=== PATIENT | female | born 1975 | race Caucasian/White ===

== ENCOUNTER 2023-08-09 09:51 | Outpatient (OUT) | payer BC, SELFPAY ==
--- NOTE | 2023-08-09 10:00 | XR_ITS ---
The [address] [address] Patient Name: HELEN RICO MRN: [id number] date: 1975 Sex: F Assigned Patient Location: [facility] Current Patient Location: Accession/Order Number: [id number] Exam Date: 08/09/2023 10:05 Report Date: 08/10/2023 10:48 At the request of: MARIA FERNANDA DINERO Procedure: XR abdomen 1V EXAMINATION: XR abdomen 1V HISTORY: Kidney Stone N20.0 COMPARISON: XR abdomen 07/08/2023 FINDINGS: KIDNEY/URETER - RIGHT: Multiple stones projecting over right kidney, largest is 7 mm. KIDNEY/URETER - LEFT: No visible renal or ureteral calcifications. PELVIS: No visible ureteral stones. BOWEL: No abnormal dilation or deviation. BONES: No acute abnormality. OTHER: Negative. No abnormal gaseous collections. XR/XR abdomen 1V IMPRESSION: 1. Nonobstructing right nephrolithiasis. 2. No visible ureteral stones; suspect passage of stone within right ureter. Electronically authenticated by: VANITA MELGOZA Date: 08/10/2023 10:48
== END 2023-08-09 09:52 | disposition home or self-care (01) ==
PROVIDERS: Visit Provider Urology
DX: N20.0 Calculus of kidney (principal)
CPT/HCPCS: 74018

== ENCOUNTER 2024-06-28 10:14 | Outpatient (OUT) | payer BC, SELFPAY ==
--- NOTE | 2024-06-28 10:20 | ECG_ITS ---
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
--- NOTE | 2024-06-28 11:00 | PM.PRESUREVA ---
History of Present Illness History of Present Illness Chief complaint: right kidney stone Narrative: Patient presents for preadmission testing. The patient states he has a history of kidney stones and previously has passed stones on his own without intervention. He states he has had intermittent episodes of hematuria, frequency, urgency with urination, nocturia, weak urine stream, and incomplete bladder emptying. He states today he is not having any pain and denies fever, nausea, vomiting, or any other complaints. Review of Systems ROS Narrative REVIEW OF SYSTEMS: Negative except as stated in HPI, ten or more systems reviewed. Constitutional: No fever, chills, weakness ENT: No sore throat or epistaxis Cardiovascular: No edema, chest pain, palpitations, or activity intolerance Respiratory: No shortness of breath, cough, or wheezing Musculoskeletal: No joint pain or swelling Gastrointestinal: No abdominal pain, constipation, diarrhea, or vomiting Neurological: No numbness, tingling, weakness, or headache Psychiatric: No mood changes PFSH PFSH Medical History (Updated 06/28/24 @ 10:37 by Ashley Mcintyre NP) Panic attacks ?F41.0 - Panic disorder [episodic paroxysmal anxiety] (ICD-10) Depression ?F32.A - Depression, unspecified (ICD-10) Anxiety ?F41.9 - Anxiety disorder, unspecified (ICD-10) Migraine ?G43.909 - Migraine, unspecified, not intractable, without status migrainosus (ICD-10) Seizures ?R56.9 - Unspecified convulsions (ICD-10) Kidney stones ?N20.0 - Calculus of kidney (ICD-10) GERD (gastroesophageal reflux disease) ?K21.9 - Gastro-esophageal reflux disease without esophagitis (ICD-10) Surgical History (Updated 06/28/24 @ 10:37 by Ashley Mcintyre NP) H/O removal of cyst ?Z98.890 - Other specified postprocedural states (ICD-10) Family History (Updated 06/28/24 @ 10:37 by Ashley Mcintyre NP) Other Cancer Family history of diabetes mellitus Family history of hypertension Social History (Updated 06/28/24 @ 10:33 by Ashley Mcintyre NP) Within the past year, how often did you have a drink containing alcohol: monthly or less Smoking status: Current every day smoker What tobacco products do you use: cigarettes Cigarettes per day: 30 Years smoked: 30 Smoking pack-years: 45.00 Non-prescribed substance use: cannabis (any form) 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 Highest level of school completed/degree received: high school graduate Meds Home Medications and Allergies Home Medications ?Medication ?Instructions ?Recorded ?Confirmed ?Type famotidine 20 mg tablet 20 mg PO Q12H PRN heartburn 06/28/24 06/28/24 History ondansetron 4 mg disintegrating 4 mg translingual Q8H PRN nausea 06/28/24 06/28/24 History tablet and vomiting propranolol 20 mg tablet 20 mg PO Q12H PRN anxiety 06/28/24 06/28/24 History tamsulosin 0.4 mg capsule 0.4 mg PO Q24H 06/28/24 06/28/24 History Allergies Allergy/AdvReac Type Severity Reaction Status Date / Time bee venom protein (honey bee) Allergy Swelling Verified 06/28/24 10:29 of Lip/Tongue/Throat Exam Narrative Exam Narrative: Constitutional: Awake, alert, comfortable, well-appearing, nontoxic, interactive, vital signs as charted Head: Normocephalic, atraumatic Neck: Supple, normal appearance, normal range of motion, no meningeal signs, no lymphadenopathy Respiratory: No respiratory distress, breath sounds clear Cardiovascular: Regular rate and rhythm, strong and regular heart tones Abdomen: Nontender, normal bowel sounds, soft, no CVA tenderness Musculoskeletal: Normal gait, no swelling or edema Skin: No rashes or induration, no lesions, only visible skin inspected Neuro: No neurological deficits, normal sensation Psychiatric: Oriented ?3, normal affect Assessment and Plan Assessment and Plan (1) Kidney stones: Plan Right ESWL scheduled with Dr. Landrum July 12, 2024.
[2024-06-28 11:01] LABS: Basophils Percent Auto 0.4 % (0.2-2.0); Eosinophils Absolute Auto 0.4 10^3/uL (0.0-0.7); Eosinophils Percent Auto 4.6 % (0.9-7.0); Hematocrit 41.7 % (36.0-48.0); Hemoglobin 14.4 g/dL (12.0-16.0); Immature Granulocytes Abs Auto 0.01 10^3/uL (0.00-0.03); Immature Granulocytes Pct Auto 0.1 % (0.0-0.5); Lymphocytes Absolute Auto 2.7 10^3/uL (1.2-3.8); Lymphocytes Percent Auto 34.9 % (20.5-60.0); Mean Corpuscular HGB Conc 34.5 g/dL (29.9-35.2); Mean Corpuscular Hemoglobin 32.4 pg (26.7-34.0); Mean Corpuscular Volume 93.9 fL (81.0-99.0); Mean Platelet Volume 8.8 fL (9.5-13.5); Monocytes Absolute Auto 0.8 10^3/uL (0.3-0.8); Monocytes Percent Auto 9.6 % (1.7-12.0); Neutrophils Percent Auto 50.4 % (43.0-75.0); Platelet Count 243 10^3/uL (150-450); Red Blood Count 4.44 10^6/uL (4.20-5.40); Red Cell Distribution Width 11.9 % (11.0-15.0); White Blood Count 7.8 10^3/uL (4.0-11.0)
[2024-06-28 11:19] LABS: INR 0.98; Prothrombin Time 10.4 sec (9.0-11.6)
[2024-06-28 11:35] LABS: Anion Gap 9.8; BUN Creatinine Ratio 16.2; Calcium 8.9 mg/dL (8.5-10.1); Carbon Dioxide 32.1 mmol/L (21.0-32.0); Chloride 104 mmol/L (98-107); Estimated GFR (African America >60 (>=60); Estimated GFR (Non-African Ame 60 (>=60); Glucose 98 mg/dL (74-106); Potassium 3.9 mmol/L (3.5-5.1); Sodium 142 mmol/L (136-145)
== END 2024-06-28 10:15 | disposition home or self-care (01) ==
LOC: PST 10:15
PROVIDERS: Visit Provider Urology
DX: Z01.810 Encounter for preprocedural cardiovascular examination (principal); Z01.812 Encounter for preprocedural laboratory examination; Z01.818 Encounter for other preprocedural examination; N20.0 Calculus of kidney
CPT/HCPCS: 36415; 80048; 85025; 85610; 85730; 93005; G0463

== ENCOUNTER 2024-07-19 08:13 | Day surgery (SDC) | payer BC, SELFPAY ==
[2024-06-28 10:48] VITALS: BP 150/89; PULSE 64; TEMP 36.2; O2SAT 99; BMI 25.2
[2024-07-19] VITALS (12 sets, daily range): BP systolic 141–182; BP diastolic 83–107; PULSE 52–105; TEMP 36.1–36.3; O2SAT 93–99; BMI 25.2
--- OUTSIDE RECORDS SUMMARY | 2024-07-19 08:17 | XMS_ITS | CCD ---
Author Organization [facility] Care Team Providers Care Weather Clerk Name Role Phone Unavailable Unavailable Unavailable Flora, Steven Unavailable Unavailable Flora, Steven Unavailable Unavailable Teran, José Miguel Humberto Unavailable Unavailable José Miguel Teran Humberto Unavailable Unavailable Dexter Davis Primary Care Provider [phone] Dexter Cleaning Primary Care Provider [phone] Joi Cuellar Primary Care Physician Dexter Cleaning Primary Care Provider [phone] HEIDI CHOUDHURY Attending Unavailable LESLIE ZHAO Attending Unavailable Joi Cuellar Primary Care Physician DEXTER DAVIS Primary Care Unavailable JOI CUELLAR Referring Unavailable DEXTER DAVIS Primary Care Unavailable JOI CUELLAR Referring Unavailable DEXTER DAVIS Primary Care Unavailable ALICIA POSADAS Attending Unavailable CLAYTON COLLIER Attending Unavailable FOUZIA DAVISIAN René Primary Care Unavailable DEXTER DAVIS Primary Care Unavailable JOI CUELLAR Referring Unavailable DEXTER DAVIS Primary Care Unavailable JOI CUELLAR Referring Unavailable Yandel LANDRUM Attending Unavailable Heidi Choudhury Admitting Unavailable Heidi Choudhury Attending Unavailable Heidi Choudhury Referring Unavailable Joi Cuellar Attending Unavailable Joi Cuellar Admitting Unavailable Yandel LANDRUM Attending Unavailable Yandel LANDRUM Attending Unavailable DIANNE SOOD Attending Unavailable Joi Cuellar Attending Unavailable Joi Cuellar Attending Unavailable Joi Cuellar Attending Unavailable Joi Cuellar Attending Unavailable Becky Nicholson. Attending Unavailable Joi Cuellar Attending Unavailable Joi Cuellar Attending Unavailable Joi Cuellar Referring Unavailable Yandel LANDRUM Attending Unavailable Allergies Allergy Classification Reported Allergen(s) Allergy Type Date of Onset Reaction(s) Facility Bee/Wasp/Ant Venom (2 sources) Bee/Wasp/Ant venom Substance Allergy 4 Edema of pharynx (disorder), Anaphylaxis [facility] (10 sources) Bee/Wasp/Ant venom; Translations: [Bee Stings] Drug allergy Edema of pharynx (disorder) [facility] (2 sources) bee venom Propensity to adverse reactions to drug 4 Anaphylaxis [facility] Medications Current Medications Medication Drug Class(es) Dates Sig (Normalized) Sig (Original) 24 hr buPROPion hydrochloride 300 mg extended release oral tablet (13 sources) Aminoketone Start: 06-14-2023 take 1 tablet by mouth once daily in the morning Wellbutrin XL 300 mg/24 hours Tab-ER 300 mg = 1 tab(s), Oral, Daily, every AM, # 90 tab(s), Refills(s) 0, Pharmacy: [facility], 175, cm, 06/14/23 11:19:00 EDT, Height/Length Dosing, 77.6, kg, 06/14/23 11:19:00 EDT, Weight Dosing Start Date: 06/14/23 Status: Ordered Start: 05-17-2023 take 1 tablet by chely th once daily in the morning Wellbutrin XL 150 mg/24 hours Tab-ER 150 mg = 1 tab(s), Oral, q24hr, Every morning, # 90 tab(s), Refills(s) 1, Pharmacy: [facility], 175, cm, 05/17/23 11:57:00 EDT, Height/Length Dosing, 79.2, kg, 05/17/23 11:57:00 EDT, Weight Dosing Start Date: 05/17/23 Status: Ordered Start: 02-08-2023 take 1 tablet by chely th once daily in the morning Wellbutrin XL 150 mg/24 hours Tab-ER 150 mg = 1 tab(s), Oral, q24hr, Every morning, # 30 tab(s), Refills(s) 0, Pharmacy: [facility], 179, cm, 02/08/23 8:59:00 EDT, Height/Length Dosing, 85.7, kg, 02/08/23 9:08:00 EDT, Weight Dosing Start Date: 02/08/23 Status: Ordered celecoxib 200 mg oral capsule (3 sources) Nonsteroidal Anti-inflammatory Drug Start: 03-16-2024 take 1 capsule by mouth twice daily at mealtime CeleBREX 200 mg Cap 200 mg = 1 cap(s), Oral, BID, with food, # 60 cap(s), Refills(s) 0, Pharmacy: [facility], 175, cm, 03/16/24 10:50:00 EDT, Height/Length Dosing, 84.2, kg, 03/16/24 10:50:00 EDT, Weight Dosing Start Date: 03/16/24 Status: Ordered ciprofloxacin 500 mg oral tablet (1 source) Quinolone Antimicrobial Start: 06-14-2024 ciprofloxacin 500 mg Tab Refills(s) 0 Start Date: 06/14/24 Status: Ordered dicyclomine hydrochloride 10 mg oral capsule (12 sources) Anticholinergic Start: 06-14-2023 take 1 capsule by mouth every six hours as needed dicyclomine 10 mg Cap 10 mg = 1 cap(s), Oral, q6hr, PRN Irritable bowel symptoms, # 60 cap(s), Refills(s) 0, Pharmacy: [facility], 175, cm, 06/14/23 11:19:00 EDT, Height/Length Dosing, 77.6, kg, 06/14/23 11:19:00 EDT, Weight Dosing Start Date: 06/14/23 Status: Ordered Start: 05-17-2023 take 1 capsule by [facility] every six hours as needed dicyclomine 10 mg Cap 10 mg = 1 cap(s), Oral, q6hr, PRN Irritable bowel symptoms, # 60 cap(s), Refills(s) 0, Pharmacy: [facility], 175, cm, 05/17/23 11:57:00 EDT, Height/Length Dosing, 79.2, kg, 05/17/23 11:57:00 EDT, Weight Dosing Start Date: 05/17/23 Status: Ordered famotidine 20 mg oral tablet (12 sources) Histamine-2 Receptor Antagonist Start: 06-14-2023 take 1 tablet by mouth once daily at bedtime famotidine 20 mg Tab 20 mg = 1 tab(s), Oral, Once a day (at bedtime), avoid eating and drinking for 10 minutes after each dose, # 90 tab(s), Refills(s) 1, Pharmacy: [facility], 175, cm, 06/14/23 11:19:00 EDT, Height/Length Dosing, 77.6, kg, 06/14/23 11:19:00 EDT, Weight Dosing Start Date: 06/14/23 Status: Ordered Start: 05-17-2023 take 1 tablet by chely once daily at bedtime famotidine 20 mg Tab 20 mg = 1 tab(s), Oral, Once a day (at bedtime), avoid eating and drinking for 10 minutes after each dose, # 30 tab(s), Refills(s) 1, Pharmacy: [facility], 175, cm, 05/17/23 11:57:00 EDT, Height/Length Dosing, 79.2, kg, 05/17/23 11:57:... Start Date: 05/17/23 Status: Ordered ondansetron 4 mg disintegrating oral tablet (14 sources) Serotonin-3 Receptor Antagonist Start: 12-10-2014 take 1 tablet by mouth every eight hours as needed for nausea ondansetron (ZOFRAN ODT) 4 MG disintegrating tablet Take 1 tablet by mouth every 8 hours as needed for Nausea or Vomiting. 6 tablet 0 12/10/2014 Active propranolol hydrochloride 20 mg oral tablet (13 sources) beta-Adrenergic Dawit Start: 06-14-2023 take 1 tablet by mouth twice daily as needed for anxiety propranolol 20 mg Tab 20 mg = 1 tab(s), Oral, BID, PRN Anxiety, # 180 tab(s), Refills(s) 1, Pharmacy: [facility], 175, cm, 06/14/23 11:19:00 EDT, Height/Length Dosing, 77.6, kg, 06/14/23 11:19:00 EDT, Weight Dosing Start Date: 06/14/23 Status: Ordered Start: 03-08-2023 take 1 tablet by chely twice daily as needed for anxiety propranolol 20 mg Tab 20 mg = 1 tab(s), Oral, BID, PRN Anxiety, # 60 tab(s), Refills(s) 0, Pharmacy: [facility], 179, cm, 02/08/23 8:59:00 EDT, Height/Length Dosing, 81.5, kg, 03/08/23 11:11:00 EDT, Weight Dosing Start Date: 03/08/23 Status: Ordered Start: 02-08-2023 take 1 tablet by [facility] twice daily as needed for anxiety propranolol 20 mg Tab 20 mg = 1 tab(s), Oral, BID, PRN Anxiety, # 60 tab(s), Refills(s) 0, Pharmacy: [facility], 179, cm, 02/08/23 8:59:00 EDT, Height/Length Dosing, 85.7, kg, 02/08/23 9:08:00 EDT, Weight Dosing Start Date: 02/08/23 Status: Ordered tamsulosin hydrochloride 0.4 mg oral capsule (20 sources) alpha-Adrenergic Dawit Start: 06-14-2024 take 1 capsule by mouth once daily tamsulosin 0.4 mg Cap 0.4 mg = 1 cap(s), Oral, Daily, # 90 cap(s), Refills(s) 1, Pharmacy: [facility], 175, cm, 06/14/24 9:10:00 EDT, Height/Length Dosing, 81.7, kg, 06/14/24 9:10:00 EDT, Weight Dosing Start Date: 06/14/24 Status: Ordered Start: 04-24-2024 take 1 capsule by [facility] once daily tamsulosin 0.4 mg Cap 0.4 mg = 1 cap(s), Oral, Daily, # 90 cap(s), Refills(s) 0, Pharmacy: [facility], 175, cm, 03/16/24 10:50:00 EDT, Height/Length Dosing, 84.2, kg, 03/16/24 10:50:00 EDT, Weight Dosing Start Date: 04/24/24 Status: Ordered Start: 12-12-2014 take 1 capsule by [facility] once daily tamsulosin 0.4 mg Cap 0.4 mg = 1 cap(s), Oral, Daily, # 30 cap(s), Refills(s) 0, Pharmacy: [facility], 175, cm, 03/16/24 10:50:00 EDT, Height/Length Dosing, 84.2, kg, 03/16/24 10:50:00 EDT, Weight Dosing Start Date: 03/16/24 Status: Ordered Zofran ODT 4 mg Tab-Dis (10 sources) Start: 03-16-2024 take 1 tablet by mouth three times daily as needed for nausea Zofran ODT 4 mg Tab-Dis 4 mg = 1 tab(s), Oral, TID, PRN Nausea/Vomiting, # 30 tab(s), Refills(s) 0, Pharmacy: [facility], 175, cm, 03/16/24 10:50:00 EDT, Height/Length Dosing, 84.2, kg, 03/16/24 10:50:00 EDT, Weight Dosing Start Date: 03/16/24 Status: Ordered Start: 06-14-2023 take 1 tablet by chely th three times daily as needed for nausea Zofran ODT 4 mg Tab-Dis 4 mg = 1 tab(s), Oral, TID, PRN Nausea/Vomiting, # 30 tab(s), Refills(s) 0, Pharmacy: [facility], 175, cm, 06/14/23 11:19:00 EDT, Height/Length Dosing, 77.6, kg, 06/14/23 11:19:00 EDT, Weight Dosing Start Date: 06/14/23 Status: Ordered Start: 02-08-2023 take 1 tablet by chely th three times daily as needed for nausea Zofran ODT 4 mg Tab-Dis 4 mg = 1 tab(s), Oral, TID, PRN Nausea/Vomiting, # 30 tab(s), Refills(s) 0, Pharmacy: [facility], 179, cm, 02/08/23 8:59:00 EDT, Height/Length Dosing, 85.7, kg, 02/08/23 9:08:00 EDT, Weight Dosing Start Date: 02/08/23 Status: Ordered Completed/Discontinued Medications Medication Drug Class(es) Dates Sig (Normalized) Sig (Original) ibuprofen 200 mg oral tablet (1 source) Nonsteroidal Anti-inflammatory Drug Start: 11-07-2023 End: 11-07-2023 ibuprofen (ADVIL;MOTRIN) tablet 600 mg Start: 11-07-2023 End: 11-07-2023 ibuprofen (ADVIL;MOTRIN) tab let 600 mg Problems Active Problems Problem Classification Problem Date Documented Date Episodic/Chronic Abdominal pain (6 sources) Generalized abdominal pain; Translations: [Generalized abdominal pain] Onset: 05-17-2023 Episodic Anxiety disorders (17 sources) Generalized anxiety disorder; Translations: [Generalized anxiety disorder] Onset: 02-08-2023 Chronic Calculus of urinary tract (20 sources) Kidney stone; Translations: [Calculus of kidney] Onset: 12-12-2014 12-12-2014 Episodic Esophageal disorders (1 source) Gastroesophageal reflux disease without esophagitis; Translations: [Gastro-esophageal reflux disease without esophagitis] Onset: 06-14-2023 Chronic Genitourinary symptoms and ill-defined conditions (10 sources) Blood in urine; Translations: [Hematuria, unspecified] Onset: 07-05-2023 Episodic Hyperplasia of prostate (3 sources) Benign prostatic hypertrophy with outflow obstruction; Translations: [Benign prostatic hyperplasia with lower urinary tract symptoms] Onset: 2024 Chronic Malaise and fatigue (10 sources) Fatigue 05-13-2020 Episodic Nausea and vomiting (12 sources) Nausea; Translations: [Nausea] Onset: 02-08-2023 Episodic Other acquired deformities (10 sources) Wrist joint deformity 04-23-2020 Episodic Other acquired deformities (2 sources) Acquired deformity of left forearm; Translations: [Unspecified acquired deformity of left forearm] Other connective tissue disease (1 source) Ganglion cyst; Translations: [Ganglion cyst] Episodic Other connective tissue disease (1 source) Disorder of rotator cuff; Translations: [Unspecified disorder of synovium and tendon, left shoulder] 11-07-2023 Episodic Other connective tissue disease (1 source) Pain in right hand; Translations: [Right hand pain] Other connective tissue disease (1 source) Pain in left thumb; Translations: [Pain of left thumb] Other diseases of kidney and ureters (2 sources) Renal tubulo-interstitial disease, unspecified; Translations: [Renal tubulo-interstitial disease, unspecified] Onset: 07-08-2023 Chronic Other diseases of kidney and ureters (1 source) Urinary tract obstruction; Translations: [Other obstructive and reflux uropathy] Onset: 2024 Episodic Other lower respiratory disease (1 source) Apnea; Translations: [Apnea, not elsewhere classified] Onset: 06-14-2023 Episodic Other nervous system disorders (2 sources) Anesthesia of skin; Translations: [Anesthesia of skin] Episodic Other non-traumatic joint disorders (10 sources) Pain in wrist 04-23-2020 Episodic Other non-traumatic joint disorders (2 sources) Pain of left wrist; Translations: [Pain in left wrist] Other non-traumatic joint disorders (1 source) Pain of right wrist; Translations: [Right wrist pain] Other nutritional; endocrine; and metabolic disorders (13 sources) Overweight; Translations: [Overweight] Onset: 02-08-2023 Episodic Other nutritional; endocrine; and metabolic disorders (9 sources) Overweight in adulthood with body mass index of 25 or more but less than 30; Translations: [Body mass index (BMI) 28.0-28.9, adult] Onset: 02-08-2023 Episodic Other nutritional; endocrine; and metabolic disorders (1 source) Abnormal weight loss; Translations: [Abnormal weight loss] Onset: 02-08-2023 Episodic Other nutritional; endocrine; and metabolic disorders (10 sources) Body mass index 25-29 - overweight 02-17-2021 Episodic Other screening for suspected conditions (not mental disorders or infectious disease) (1 source) Procedure carried out on subject; Translations: [Encounter for screening for other suspected endocrine disorder] Onset: 02-08-2023 Episodic Residual codes; unclassified (10 sources) Sleep apnea 06-06-2019 Chronic Residual codes; unclassified (2 sources) Tobacco user; Translations: [Tobacco use] Onset: 05-17-2023 Episodic Residual codes; unclassified (1 source) Body mass index 20-24 - normal; Translations: [Body mass index (BMI) 24.0-24.9, adult] Onset: 07-05-2023 Episodic Screening and history of mental health and substance abuse codes (10 sources) Tobacco use and exposure - finding 02-17-2021 Chronic Substance-related disorders (5 sources) Smoker 07-25-2023 Chronic Urinary tract infections (1 source) Urinary tract infectious disease; Translations: [Urinary tract infection, site not specified] Onset: 06-14-2024 Episodic Past or Other Problems Problem Classification Problem Date Documented Date Episodic/Chronic Other connective tissue disease (1 source) Unspecified disorder of synovium and tendon, left shoulder; Translations: [Unspecified disorder of synovium and tendon, left shoulder] Onset: 11-07-2023 Episodic Residual codes; unclassified (1 source) Personal history of other complications of , childbirth and the puerperium; Translations: [Personal history of other complications of , childbirth and the puerperium] Onset: 07-08-2023 Episodic Sprains and strains (2 sources) Sprain of left shoulder; Translations: [Unspecified sprain of left shoulder joint, initial encounter] Onset: 11-07-2023 11-07-2023 Episodic Results Test Name Value Interpretation Reference Range Facility Cult,Urineon 06-13-2024 Cult,Urine Specimen Description .URINE Culture NO SIGNIFICANT GROWTH Report Status FINAL 06/13/2024 Normal [facility] Comment on above: Performed By: #### U RC #### [facility] [address] [place] [address] Chief Of Production: Hermann Huerta MD [facility] [address] [place] [address] Chief Of Production: Kole Merchant MD Basic Metabolic Profon 06-12 Anion gap [Moles/Vol] 9 mmol/L Normal 9-17 [facility] Comment on above: Performed By: #### C DP, BMP #### [facility] [address] [facility] [place] [address] Chief Of Production: Kole Merchant MD BUN/CRE Ratio 16 Normal 9-20 [facility] Comment on above: Performed By: #### C DP, BMP #### [facility] [address] [place] [address] Chief Of Production: Kole Merchant MD Calcium [Mass/Vol] 9.4 mg/dL Normal 8.6-10.4 [facility] Comment on above: Performed By: #### C DP, BMP #### [facility] [address] [place] [address] Chief Of Production: Kole Merchant MD Chloride [Moles/Vol] 104 mmol/L Normal 98-107 [facility] Comment on above: Performed By: #### C DP, BMP #### [facility] [address] [place] [address] Chief Of Production: Kole Merchant MD CO2 [Moles/Vol] 26 mmol/L Normal 20-31 [facility] Comment on above: Performed By: #### C DP, BMP #### [facility] [address] [place], [place] [id number] Chief Of Production: Kole Merchant MD Creatinine [Mass/Vol] 0.8 mg/dL Normal 0.7-1.2 [facility] Comment on above: Performed By: #### C DP, BMP #### [facility] [address] [place], [place] [id number] Chief Of Production: Kole Merchant MD GFR/1.73 sq M.predicted among non-blacks MDRD (S/P/Bld) [Vol rate/Area] mL/min/{1.73_m2} Normal >60 [facility] Comment on above: Result Comment: These results are not intended for use in patients <18 years of age. eGFR results are calculated without a race factor using the 2020 CKD-EPI equation. Careful clinical correlation is recommended, particularly when comparing to results calculated using previous equations. The CKD-EPI equation is less accurate in patients with extremes of muscle mass, extra-renal metabolism of creatine, excessive creatine ingestion, or following therapy that affects renal tubular secretion. Performed By: #### C DP, BMP #### [facility] [address] [place], [place] [id number] Chief Of Production: Kole Merchant MD Glucose [Mass/Vol] 104 mg/dL High 70-99 [facility] Comment on above: Performed By: #### C DP, BMP #### [facility] [address] [place], [place] [id number] Chief Of Production: Kole Merchant MD Potassium [Moles/Vol] 3.9 mmol/L Normal 3.7-5.3 [facility] Comment on above: Performed By: #### C DP, BMP #### [facility] [address] [place], [place] [id number] Chief Of Production: Kole Merchant MD Sodium [Moles/Vol] 139 mmol/L Normal 135-144 [facility] Comment on above: Performed By: #### C DP, BMP #### [facility] [address] [place] [address] Chief Of Production: Kole Merchant MD Urea nitrogen [Mass/Vol] 13 mg/dL Normal 6-20 [facility] Comment on above: Performed By: #### C DP, BMP #### [facility] [address] [place] [id number] Chief Of Production: Kole Merchant MD CBC with Diffon 06-12-2024 Abs. Basophil 0.03 k/uL Normal 0.00-0.20 [facility] Comment on above: Performed By: #### C DP, BMP #### [facility] [address] [place] [address] Chief Of Production: Kole Merchant MD Abs.Imm.Granulocyte 0.01 k/uL Normal 0.00-0.30 [facility] Comment on above: Performed By: #### C DP, BMP #### [facility] [address] [place], [place] [id number] Chief Of Production: Kole Merchant MD Abs.Neutrophil (Seg) 5.50 k/uL Normal 2.1-6.5 [facility] Comment on above: Performed By: #### C DP, BMP #### [facility] [address] [place] [address] Chief Of Production: Kole Merchant MD Basophils/100 WBC (Bld) 0 % Normal 0-2 [facility] Comment on above: Performed By: #### C DP, BMP #### [facility] [address] [place] [id number] Chief Of Production: Kole Merchant MD Eosinophils (Bld) [#/Vol] 0.30 10*3/uL Normal 0.00-0.40 [facility] Comment on above: Performed By: #### C DP, BMP #### [facility] [address] [place] [id number] Chief Of Production: Kole Merchant MD Eosinophils/100 WBC (Bld) 4 % Normal 0-5 [facility] Comment on above: Performed By: #### C DP, BMP #### [facility] [address] [place] [address] Chief Of Production: Kole Merchant MD Erythrocyte distribution width (RBC) [Ratio] 11.7 % Low 12.1-15.2 [facility] Comment on above: Performed By: #### C DP, BMP #### [facility] [address] [place] [id number] Chief Of Production: Kole Merchant MD Hematocrit (Bld) [Volume fraction] 39.7 % Low 41.0-53.0 [facility] Comment on above: Performed By: #### C DP, BMP #### [facility] [address] [place] [id number] Chief Of Production: Kole Merchant MD Hemoglobin (Bld) [Mass/Vol] 13.9 g/dL Normal 13.5-17.5 [facility] Comment on above: Performed By: #### C DP, BMP #### [facility] [address] [place] [id number] Chief Of Production: Kole Merchant MD Immature granulocytes/100 WBC (Bld) 0 % Normal 0-5 [facility] Comment on above: Performed By: #### C DP, BMP #### [facility] [address] [place] [address] Chief Of Production: Kole Merchant MD Lymphocytes (Bld) [#/Vol] 2.12 10*3/uL Normal 1.00-4.80 [facility] Comment on above: Performed By: #### C DP, BMP #### [facility] [address] [place] [id number] Chief Of Production: Kole Merchant MD Lymphocytes/100 WBC (Bld) 25 % Normal 13-44 [facility] Comment on above: Performed By: #### C DP, BMP #### [facility] [address] [place] [id number] Chief Of Production: Kole Merchant MD MCH (RBC) [Entitic mass] 31.8 pg Normal 26.0-34.0 [facility] Comment on above: Performed By: #### C DP, BMP #### [facility] [address] [place] [id number] Chief Of Production: Kole Merchant MD MCHC (RBC) [Mass/Vol] 35.0 g/dL Normal 31.0-37.0 [facility] Comment on above: Performed By: #### C DP, BMP #### [facility] [address] [place] [id number] Chief Of Production: Kole Merchant MD MCV (RBC) [Entitic vol] 90.8 fL Normal 80.0-100.0 [facility] Comment on above: Performed By: #### C DP, BMP #### [facility] [address] [place] [address] Chief Of Production: Kole Merchant MD Monocytes (Bld) [#/Vol] 0.51 10*3/uL Normal 0.00-1.00 [facility] Comment on above: Performed By: #### C DP, BMP #### [facility] [address] [place] [address] Chief Of Production: Kole Merchant MD Monocytes/100 WBC (Bld) 6 % Normal 5-9 [facility] Comment on above: Performed By: #### C DP, BMP #### [facility] [address] [place] [address] Chief Of Production: Kole Merchant MD Neutrophil (Seg) 65 % Normal 39-75 [facility] Comment on above: Performed By: #### C DP, BMP #### [facility] [address] [place] [address] Chief Of Production: Kole Merchant MD Platelet mean volume (Bld) [Entitic vol] 8.7 fL Normal 6.0-12.0 [facility] Comment on above: Performed By: #### C DP, BMP #### [facility] [address] [place] [address] Chief Of Production: Kole Merchant MD Platelets (Bld) [#/Vol] 231 10*3/uL Normal 140-450 [facility] Comment on above: Performed By: #### C DP, BMP #### [facility] [address] [place] [address] Chief Of Production: Kole Merchant MD RBC (Bld) [#/Vol] 4.37 10*6/uL Low 4.50-5.90 [facility] Comment on above: Performed By: #### C DP, BMP #### [facility] [address] [place] [address] Chief Of Production: Kole Merchant MD WBC (Bld) [#/Vol] 8.5 10*3/uL Normal 3.5-11.0 [facility] Comment on above: Performed By: #### C DP, BMP #### [facility] [address] [place] [address] Chief Of Production: Kole Merchant MD Urinalysis, Routineon 2023 Bilirubin, SemiQt,Ur Negative Normal NEG [facility] Comment on above: Performed By: #### U MICAO, UA #### [facility] [address] [place] [address] Chief Of Production: Kole Merchant MD Blood, Urine 3+ Abnormal NEG [facility] Comment on above: Performed By: #### U MICAO, UA #### [facility] [address] [facility] [place] [id number] Chief Of Production: Kole Merchant MD Clarity (U) Clear Normal CLEAR [facility] Comment on above: Performed By: #### U MICAO, UA #### [facility] [address] On License Of [facility] [place] [id number] Chief Of Production: Kole Merchant MD Color (U) Yellow Normal YEL [facility] Comment on above: Performed By: #### U MICAO, UA #### [facility] [address] On License Of [facility] [place] [id number] Chief Of Production: Kole Merchant MD Comment Normal [facility] Comment on above: Performed By: #### U MICAO, UA #### [facility] [address] [place] [place] [address] Chief Of Production: Kole Merchant MD Glucose Ql (U) Negative Normal NEG [facility] Comment on above: Performed By: #### U MICAO, UA #### [facility] [address] [place] [place] [address] Chief Of Production: Kole Merchant MD Ketones Ql (U) Negative Normal NEG [facility] Comment on above: Performed By: #### U MICAO, UA #### [facility] [address] On License Of [facility] [place] [id number] Chief Of Production: Kole Merchant MD Leukocyte esterase Test strip Ql (U) 1+ Abnormal NEG [facility] Comment on above: Performed By: #### U MICAO, UA #### [facility] [address] [place], [place] [id number] Chief Of Production: Kole Merchant MD Nitrite,Ur Negative Normal NEG [facility] Comment on above: Performed By: #### U MICAO, UA #### [facility] [address] [place], [place] [id number] Chief Of Production: Kole Merchant MD PH,Ur 6.0 Normal 5.0-8.0 [facility] Comment on above: Performed By: #### U MICAO, UA #### [facility] [address] [place], [place] 1302690 Chief Of Production: Kole Merchant MD Protein Ql (U) 1+ mg/dL Abnormal NEG [facility] Comment on above: Performed By: #### U MICAO, UA #### [facility] [address] [place], [place] [id number] Chief Of Production: Kole Merchant MD Spec. [place],Ur 1.020 Normal 1.005-1.030 [facility] Comment on above: Performed By: #### U MICAO, UA #### [facility] [address] [place], [place] [id number] Chief Of Production: Kole Merchant MD Urobilinogen,Ur Normal Normal 0.0-1.0 [facility] Comment on above: Performed By: #### U MICAO, UA #### [facility] [address] [place], [place] [id number] Chief Of Production: Kole Merchant MD Urinalysis,Microon 4 ----- Normal [facility] Comment on above: Performed By: #### U MICAO, UA #### [facility] [address] [place], [place] 1058790 Chief Of Production: Kole Merchant MD Bacteria 1+ Abnormal NONE [facility] Comment on above: Performed By: #### U MICAO, UA #### [facility] [address] [place], [place] [id number] Chief Of Production: Kole Merchant MD Crystals LM Nom (Urine sed) 2+ /HPF Abnormal NONE [facility] Comment on above: Result Comment: CALC IUM OXALATE Performed By: #### U MICAO, UA #### [facility] [address] [place], [place] [id number] Chief Of Production: Kole Merchant MD Epithelial cells LM Ql (Urine sed) 0 TO 2 Normal [facility] Comment on above: Performed By: #### U MICAO, UA #### [facility] [address] [place], [place] 2476190 Chief Of Production: Kole Merchant MD Urine RBC's 5 TO 10 Normal 0-2 [facility] Comment on above: Performed By: #### U MICAO, UA #### [facility] [address] [place], [place] 9305790 Chief Of Production: Kole Merchant MD Urine WBC's 5 TO 10 Normal 0 [facility] Comment on above: Performed By: #### U MICAO, UA #### [facility] [address] [place], [place] 1890990 Chief Of Production: Kole Merchant MD Provider Letteron 06-07-2024 Provider Letter Provider Letter June 07, 2024 HELEN RICO [address] [place] [address] : 1975 Dear Helen Jacky , We have been trying to reach you with no success to get you scheduled for ESWL/lithotripsy surgery for your kidney stones. It is important that you return our call regarding your scheduling your procedure upon receiving this letter. Also, at the time of your call, please provide us with your current information. Thank you for your prompt attention to this matter. Sincerely, [facility] , option #3 Normal [facility] Ambulatory Visit Summaryon 0 2024 Ambulatory Visit Summary Ambulatory Visit Summary HELEN RICO :1975 Visit Date:2024 Ambulatory Visit Instructions Your Diagnosis Kidney stone History of kidney stones Feeling of incomplete bladder emptying Your Care Team Attending Physician - DIANNE SOOD PA-C Primary Care Physician - Collin PIKE, Joi David. This Is Your Medications List buPROPion (Wellbutrin XL 300 mg/24 hours Tab-ER) celecoxib (CeleBREX 200 mg Cap) dicyclomine (dicyclomine 10 mg Cap) famotidine (famotidine 20 mg Tab) ondansetron (Zofran ODT 4 mg Tab-Dis) propranolol (propranolol 20 mg Tab) tamsulosin (tamsulosin 0.4 mg Cap) Procedures Performed Exostectomy (07/09/2020), Ganglion cyst of left wrist (05/14/2020). Discharge Vitals Heart Rate (Peripheral) 90 Respiratory Rate 16 Blood Pressure 138/86 Height 175 cm Height 69 in Weight 83 kg Weight 182.6 lb BMI 27.1 What to do next You Need to Schedule the Following Appointments Follow Up with ROSETTE GÓMEZ, HERB Monk When: Where: [facility] [address] , [place] [address]- Medications What How Much When Instructions Unchanged buPROPion (Wellbutrin XL 300 mg/ 24 hours Tab-ER) 1 Tablets By Mouth Every day every AM Unchanged celecoxib (CeleBREX 200 mg Cap) 1 Capsules By Mouth 2 times a day with food Unchanged dicyclomine (dicyclomine 10 mg Cap) 1 Capsules By Mouth Every 6 hours as needed for Irritable bowel symptoms Unchanged famotidine (famotidine 20 mg Tab) 1 Tablets By Mouth Once a day (at bedtime) avoid eating and drinking for 10 minutes after each dose Unchanged ondansetron (Zofran ODT 4 mg Tab-Dis) 1 Tablets By Mouth 3 times a day as needed for Nausea/Vomiting Unchanged propranolol (propranolol 20 mg Tab) 1 Tablets By Mouth 2 times a day as needed for Anxiety Unchanged tamsulosin (tamsulosin 0.4 mg Cap) 1 Capsules By Mouth Every day Allergies Bee Stings (Edema of throat) Problems Ongoing - Any problem that you are currently receiving treatment for. BMI 27.0-27.9,adult BMI 28.0-28.9,adult Deformity of left wrist Generalized anxiety disorder with panic attacks History of kidney stones Kidney stone Left wrist pain Observed sleep apnea Overweight Smoker Tobacco use Ureteral stone Historical - Any problem that you are no longer receiving treatment for. Fatigue Nausea with vomiting Patient Survey You may receive a survey via text or e-mail asking about your office visit. Please share your experience with us by completing your survey. We appreciate your feedback and thank you for choosing us for your care. Normal [facility] Urology Office/Clinic Noteon 2024 Urology Office/Clinic Note Urology Office/Clinic Note Chief Complaint Kidney stones, right kidney HPI Staff 48 year old male patient presents today for kidney stones with KUB. Last KUB done 03/19/24. Patient PCP manages Flomax 0.4 mg qd. Was given celecoxib 200 mg by PCP end of february. Previous Dx: kidney stone, ureteral stone. Dysuria: denies Incomplete bladder emptying: yes, PVR: 59 ml Hematuria: denies visible blood Frequency: once every hour Urgency: yes Nocturia: 3-4 x a night Stream: denies hesitancy, has a weak stream Leaking: sometimes Post void dripping: sometimes Wearing pads/ Depends: denies Urge incontinence: denies Stress incontinence: denies Incontinence without Sensory Awareness: denies Abdominal pain: denies Flank pain: denies Sexual complaints: _ Review of Systems PHQ Score Initial Depression Screen Score: 0 SCORE no fever, chills, malaise, myalgia. no rash/lesions. no chest pain, palpitations, or SOB. no abdominal pain, nausea, vomiting. no unilateral calf swelling, redness, pain Physical Exam Vitals & Measurements HR: 90(Peripheral) RR: 16 BP: 138/86 HT: 69 in HT: 175 cm WT: 83 kg WT: 182.6 lb BMI: 27.1 General: nontoxic, NAD Mouth: moist mucosa Lungs: normal respiratory effort Cardio: regular rate, good distal perfusion Abdomen: nondistended, no suprapubic distention or tenderness, no CVA tenderness Neurologic: Grossly normal Skin: No rashes or suspicious lesions Assessment/Plan 1. Kidney stone (N20.0: Calculus of kidney) Does have Hx of Kidney Stones, since age of 19. Has passed them on his own, estimates 40-50 stones in lifetime. No surgical intervention. Stones have been harder to pass in the past 5yrs. Was scheduled for R ESWL fall of 2022 but didn't show up to PST and never called to r/s. Pt would like to r/s at this time. KUB 03/19/24 shows two 5mm stones over middle third R kidney and a 10mm stone over inferior pole/renal pelvis. Pt denies current flank/abdominal pain. UA shows lg hgb only. Will schedule ESWL. The procedure risks, benefits, details and treatment alternatives have been discussed with the patient. These include blood in the urine, infection, bleeding around the kidney, kidney bruising, inability to break up the stone, need for blood transfusion, blockage from stone fragments, and need for additional procedures, among others. Full informed consent has been obtained. Will order General anesthesia. Ordered: [id number] Measure Post Void residual urine and/or bladder capacity by US- non-imaging Urnls Dip Stick Auto w/o Microscopy POC 12910 2. Ureteral stone (N20.1: Calculus of ureter) Saw PCP 03/16/24 due to stone sx. Was given Flomax, Celebrex, and Zofran. KUB 03/19/24 did not identify any ureteral stones. Pt passed stone on 03/23/24. Says it was about the size of a pencil eraser. Has had no pain or issues since that time but this stone passage prompted him to want to resume care w our office and r/s his lithotripsy. See #1. 3. BPH with obstruction/lower urinary tract symptoms (N40.1: Benign prostatic hyperplasia with lower urinary tract symptoms) IPSS 23 QOL 6 without Flomax says PCP gave him Flomax to help w recent stone passage and he noticed a huge difference in urinary sx. ran out and sx came right back, so she refilled w long-term rx. I advised him to stay on this. May need to consider increasing dose, adding 5-MAX, or KELSEY procedure in future. 4. Feeling of incomplete bladder emptying (R39.14: Feeling of incomplete bladder emptying) PVR 59ml Ordered: [id number] Measure Post Void residual urine and/or bladder capacity by US- non-imaging Other obstructive and reflux uropathy (N13.8: Other obstructive and reflux uropathy) Follow-up With When Contact Information [facility] [address] 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 Medications CeleBREX 200 mg Cap, 200 mg= 1 cap(s), Oral, BID dicyclomine 10 mg Cap, 10 mg= 1 cap(s), Oral, q6hr, PRN famotidine 20 mg Tab, 20 mg= 1 tab(s), Oral, Once a day (at bedtime), 1 refills propranolol 20 mg Tab, 20 mg= 1 tab(s), Oral, BID, PRN, 1 refills tamsulosin 0.4 mg Cap, 0.4 mg= 1 cap(s), Oral, Daily Wellbutrin XL 300 mg (more content not included)... Normal [facility] Comment on above: Result Comment: Elec tronically Signed By: DIANNE SOOD PA-C\.br\Date and Time Signed: 04/30/24 13:51 EDT Provider Letteron 03-28-2024 Provider Letter March 28, 2024 HELEN RICO [address] [place] [address] : 1975 To Whom It May Concern, Please excuse above patient from work. Date of Illness: From: 03/16/2024 To: 03/27/2024 May Return to Work On: 03/28/2024 Restrictions: Patient has no restrictions when returning back to work Comments: none Sincerely, Joi Cuellar PA-C [facility] [address] [place] [address] [facility] Provider Letteron 03-27-2024 Provider Letter March 27, 2024 [place] [address] : 1975 To Whom It May Concern, Please excuse above patient from work. Date of Illness: From: 03/16/2024 To: 03/25/2024 May Return to Work On:03/26/2024 Restrictions: None Comments: Patient has no restrictions when returning back to work. Sincerely, Joi Cuellar PA-C [facility] [address] [place] [address] [facility] Provider Letteron 03-23-2024 Provider Letter March 23, 2024 HELEN RICO [address] [address] : 1975 To Whom It May Concern, Please excuse above patient from work. Date of Illness: From: 03/16/2024 To: 03/25/2024 May Return to Work On: 03/26/2024 Sincerely, [facility] [address] [place] [address] [facility] Family Medicine Office/Clini c Noteon 03-21-2024 Family Medicine Office/Clinic Note Chief Complaint c/o back discomfort, concerned of kidney stones HPI Staff C/O: Onset: Tuesday am woke up from sleep Location: Symptoms: lower back discomfort/ pressure OTC: History of Present Illness I have reviewed staff HPI and it is correct. Helen Rico is a 48-year-old male here for concerns regarding lower back pain, dysuria, and concerns regarding possible kidney stone. Urinalysis in office performed indicates hematuria present. The patient does have a significant history of nephrolithiasis in the past. He was supposed to have a procedure performed with Dr. Yandel Landrum; however, the patient canceled procedure and has not rescheduled appointment. The patient had nephrolithiasis, however, he developed another stone 8 months later. He experienced severe pain on 03/14/2024 PM, which he suspects may have been obstructed. He has been informed that the presence of extensive scar tissue may cause complications. 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 He also reports unusual pain in certain areas when the stone is passed beyond a certain size, likening it to a stomach ache. He has increased his water intake, and gradual discontinuation of his stomach medication. Patient has no other questions at this time. Review of Systems PHQ Score Initial Depression Screen Score: 0 SCORE All negative except as noted in the HPI. Physical Exam Vitals & Measurements T: 36.6 ?C(Oral) HR: 78(Peripheral) RR: 18 BP: 146/76 SpO2: 99% HT: 69 in HT: 175 cm WT: 84.2 kg WT: 185.24 lb BMI: 27.49 General: Overweight male, well hydrated, appears mildly uncomfortable, in no acute distress Lungs: Normal respiratory effort and clear to auscultation Cardio: Regular rate and rhythm, normal S1 and S2, no murmur, no rub Neurologic: Grossly normal Lymph Nodes: No cervical adenopathy, nodes normal Mental Status: Alert and oriented x3. Normal mood and affect Musculoskeletal: CVA tenderness on the right negative on the left. Assessment/Plan 1. Kidney stone (N20.0: Calculus of kidney) It is my belief that the patient is suffering from nephrolithiasis as there was blood in his urine. Patient also has significant history of recurrent nephrolithiasis. Patient was supposed to have procedure with Dr. Yandel Landrum, however, patient canceled procedure. Prescription for Flomax, Celebrex and Zofran sent to pharmacy. Advised patient to make sure to take medication for the next 1 to 2 weeks. Encouraged patient to proceed to the emergency department over the weekend if symptoms worsen such as inability to urinate, fever, nausea, vomiting, or diarrhea. 2. Dysuria (R30.0: Dysuria) See problem number 1. 3. BMI 27.0-27.9,adult (Z68.27: Body mass index [BMI] 27.0-27.9, adult) The standard range for ages 18 and older is >=18.5 and < 25 kg/m2. Your BMI today was above this range, this falls in the overweight to obese category and there are medical benefits to weight loss. We can offer counselling, referral, and/or medical support in addressing this problem. Your BMI and weight management will be followed at subsequent visits. 4. Overweight (E66.3: Overweight) See problem number 3. Patient verbalized understanding and is agreeable to plan and course of treatment. This documentation was completed by voice-activated device and software. Inaccuracies compared to the original dictation of this provider are possible although this document has been overread and corrected. Portions of this record may have been created with voice recognition artificial intelligence software, specifically [employer], [employer] and or [employer]. Substitutions may have occurred due to the inherent limitations of voice recognition and artificial intelligence software. ATTESTATION: This note has been generated by [employer] and edited by Joe Guzman, Quality Program Research Specialist. Follow-up With When Contact Information Collin PIKE, Joi Monteiro Only if needed [address] [place] [phone] Additional Instructions: Only if needed Patient Education Kidney Stones, [id number] Problem List/Past Medical History Ongoing BMI 27.0-27.9,adult BMI 28.0-28.9,adult Deformity of left wrist Generalized anxiety disorder with panic attacks History of kidney stones Kidney stone Left wrist pain Observed sleep apnea Overweight Smoker Tobacco use Ureteral stone Historical Fatigue Nausea with vomiting Procedure/Surgical History Exostectomy (07/09/2020), Ganglion cyst of left wrist (05/14/2020). Medications CeleBREX 200 mg Cap, 200 mg= 1 cap(s), Oral, BID dicyclomine 10 mg Cap, 10 mg= 1 cap(s), Oral, q6hr, PRN, Not taking famotidine 20 mg Tab, 20 mg= 1 tab(s), Oral, Once a day (at bedtime), 1 refills propranolol 20 mg Tab, 20 mg= 1 tab(s), Oral, BID, PRN, 1 refills, Not taking tamsulosin 0.4 mg Cap, 0.4 mg= 1 cap(s), Oral, Daily We (more content not included)... Normal [facility] Comment on above: Result Comment: Elec tronically Signed By: Joi Cuellar PA-C\.br\Date and Time Signed: 03/21/24 21:05 EDT\.br\Electronically Co-Signed By: Joe Guzman\.br\Date and Time Co-Signed: 03/16/24 12:21 EDT RAD - MISCon 03-20-2024 RAD - MISC [id number] Normal [facility] XR ABDOMEN (KUB) (SINGLE AP VIEW)on 03-19-2024 XR ABDOMEN (KUB) (SINGLE AP VIEW) EXAM: XR ABDOMEN (KUB) (SINGLE AP VIEW) HISTORY: Dysuria COMPARISON: 07/08/2023. IMPRESSION: FINDINGS/IMPRESSION: 1. Right kidney partially obscured by stool. There are two 5 mm stones over the middle third right kidney and a 10 mm stone over the inferior pole/inferior renal pelvis. 2. No stones over the bladder or expected course of the ureters. Interpreted by: Laurent Donis Jr., MD Signed by: Laurent Donis Jr., MD 03/19/24 Final result Normal [facility] XR Abdomen Single viewon FINDINGS/IMPRESSION: 1. Right kidney partially obscured by stool. There are two 5 mm stones over the middle third right kidney and a 10 mm stone over the inferior pole/inferior renal pelvis. 2. No stones over the bladder or expected course of the ureters. [facility] CONSOLIDATED EXAM: XR ABDOMEN (KUB) (SINGLE AP VIEW) HISTORY: Dysuria COMPARISON: 07/08/2023. [facility] Laurent Donis Jr., MD - 03/19/2024 EXAM: XR ABDOMEN (KUB) (SINGLE AP VIEW) HISTORY: Dysuria COMPARISON: 07/08/2023. IMPRESSION: FINDINGS/IMPRESSION: 1. Right kidney partially obscured by stool. There are two 5 mm stones over the middle third right kidney and a 10 mm stone over the inferior pole/inferior renal pelvis. 2. No stones over the bladder or expected course of the ureters. [facility] Radiology Study observation (narrative) [facility] XR Abdomen Single viewOrdere d By: Laurent Donis on 03-19-2024 [email or web address]: Ambulatory Visit Summaryon 0 03-16-2024 Ambulatory Visit Summary HELEN RICO :1975 Visit Date:03/16/2024 Ambulatory Visit Instructions Your Diagnosis Kidney stone Dysuria BMI 27.0-27.9,adult Overweight Tests Performed KUB -- Results Pending -- Please visit your patient portal for your results or contact your primary care physician. Your Care Team Attending Physician - Joi Cuellar PA-C Primary Care Physician - Joi Cuellar PA-C. This Is Your Medications List buPROPion (Wellbutrin XL 300 mg/24 hours Tab-ER) celecoxib (CeleBREX 200 mg Cap) dicyclomine (dicyclomine 10 mg Cap) famotidine (famotidine 20 mg Tab) ondansetron (Zofran ODT 4 mg Tab-Dis) propranolol (propranolol 20 mg Tab) tamsulosin (tamsulosin 0.4 mg Cap) Procedures Performed Exostectomy (07/09/2020), Ganglion cyst of left wrist (05/14/2020). Discharge Vitals Temperature (Oral) 36.6 ?C Heart Rate (Peripheral) 78 Respiratory Rate 18 Blood Pressure 146/76 Height 175 cm Height 69 in Weight 84.2 kg Weight 185.24 lb BMI 27.49 Medications What How Much When Instructions New celecoxib (CeleBREX 200 mg Cap) 1 Capsules By Mouth 2 times a day with food Pickup at [facility] Unchanged buPROPion (Wellbutrin XL 300 mg/ 24 hours Tab-ER) 1 Tablets By Mouth Every day every AM Unchanged dicyclomine (dicyclomine 10 mg Cap) 1 Capsules By Mouth Every 6 hours as needed for Irritable bowel symptoms Unchanged famotidine (famotidine 20 mg Tab) 1 Tablets By Mouth Once a day (at bedtime) avoid eating and drinking for 10 minutes after each dose Unchanged ondansetron (Zofran ODT 4 mg Tab-Dis) 1 Tablets By Mouth 3 times a day as needed for Nausea/Vomiting Pickup at [facility] Unchanged propranolol (propranolol 20 mg Tab) 1 Tablets By Mouth 2 times a day as needed for Anxiety Unchanged tamsulosin (tamsulosin 0.4 mg Cap) 1 Capsules By Mouth Every day Pickup at [facility] Pharmacy Information [facility]: [address] [place], [place] [id number] [phone] Allergies Bee Stings (Edema of throat) Problems Ongoing - Any problem that you are currently receiving treatment for. BMI 27.0-27.9,adult BMI 28.0-28.9,adult Deformity of left wrist Generalized anxiety disorder with panic attacks History of kidney stones Kidney stone Left wrist pain Observed sleep apnea Overweight Smoker Tobacco use Ureteral stone Historical - Any problem that you are no longer receiving treatment for. Fatigue Nausea with vomiting Patient Survey You may receive a survey via text or e-mail asking about your office visit. Please share your experience with us by completing your survey. We appreciate your feedback and thank you for choosing us for your care. Education Materials Kidney Stones Kidney stones are rock-like masses that form inside of the kidneys. Kidneys are organs that make pee (urine). A kidney stone may move into other parts of the urinary tract, including: ? The tubes that connect the kidneys to the bladder (ureters). ? The bladder. ? The tube that carries urine out of the body (urethra). Kidney stones can cause very bad pain and can block the flow of pee. The stone usually leaves your body (passes) through your pee. You may need to have a doctor take out the stone. What are the causes? Kidney stones may be caused by: ? A condition in which certain glands make too much parathyroid hormone (primary hyperparathyroidism). ? A buildup of a type of crystals in the bladder made of a chemical called uric acid. The body makes uric acid when you eat certain foods. ? Narrowing (stricture) of one or both of the ureters. ? A kidney blockage that you were born with. ? Past surgery on the kidney or the ureters, such as gastric bypass surgery. What increases the risk? You are more likely to develop this condition if: ? You have had a kidney stone in the past. ? You have a family history of kidney stones. ? You do not drink enough water. ? You eat a diet that is high in protein, salt (sodium), or sugar. ? You are overweight or very overweight (obese). What are the signs or symptoms? Symptoms of a kidney stone may include: ? Pain in the side of the belly, right below the ribs (flank pain). Pain usually spreads (radiates) to the groin. ? Needing to pee often or right away (urgently). ? Pain when going pee (urinating). ? Blood in your pee (hematuria). ? Feeling like you may vomit (nauseous). ? Vomiting. ? Fever and chills. How is this treated? Treatment depends on the size, location, and makeup of the kidney stones. The stones will often pass out of the body through peeing. You may need to: ? Drink more fluid to help pass the stone. In some cases, you may be given fluids through an IV tube put into one of your veins at the hospital. ? Take medicine for pain. ? Make changes in your di (more content not included)... Normal [facility] Patient Educationon 03-16-20 Patient Education Urology Kidney Stones Kidney stones are rock-like masses that form inside of the kidneys. Kidneys are organs that make pee (urine). A kidney stone may move into other parts of the urinary tract, including: ? The tubes that connect the kidneys to the bladder (ureters). ? The bladder. ? The tube that carries urine out of the body (urethra). Kidney stones can cause very bad pain and can block the flow of pee. The stone usually leaves your body (passes) through your pee. You may need to have a doctor take out the stone. What are the causes? Kidney stones may be caused by: ? A condition in which certain glands make too much parathyroid hormone (primary hyperparathyroidism). ? A buildup of a type of crystals in the bladder made of a chemical called uric acid. The body makes uric acid when you eat certain foods. ? Narrowing (stricture) of one or both of the ureters. ? A kidney blockage that you were born with. ? Past surgery on the kidney or the ureters, such as gastric bypass surgery. What increases the risk? You are more likely to develop this condition if: ? You have had a kidney stone in the past. ? You have a family history of kidney stones. ? You do not drink enough water. ? You eat a diet that is high in protein, salt (sodium), or sugar. ? You are overweight or very overweight (obese). What are the signs or symptoms? Symptoms of a kidney stone may include: ? Pain in the side of the belly, right below the ribs (flank pain). Pain usually spreads (radiates) to the groin. ? Needing to pee often or right away (urgently). ? Pain when going pee (urinating). ? Blood in your pee (hematuria). ? Feeling like you may vomit (nauseous). ? Vomiting. ? Fever and chills. How is this treated? Treatment depends on the size, location, and makeup of the kidney stones. The stones will often pass out of the body through peeing. You may need to: ? Drink more fluid to help pass the stone. In some cases, you may be given fluids through an IV tube put into one of your veins at the hospital. ? Take medicine for pain. ? Make changes in your diet to help keep kidney stones from coming back. Sometimes, medical procedures are needed to remove a kidney stone. This may involve: ? A procedure to break up kidney stones using a beam of light (laser) or shock waves. ? Surgery to remove the kidney stones. Follow these instructions at home: Medicines ? Take adph-ecg-harsyoz and prescription medicines only as told by your doctor. ? Ask your doctor if the medicine prescribed to you requires you to avoid driving or using heavy machinery. Eating and drinking ? Drink enough fluid to keep your pee pale yellow. You may be told to drink at least 8?10 glasses of water each day. This will help you pass the stone. ? If told by your doctor, change your diet. This may include: ? Limiting how much salt you eat. ? Eating more fruits and vegetables. ? Limiting how much meat, poultry, fish, and eggs you eat. ? Follow instructions from your doctor about eating or drinking restrictions. General instructions ? Collect pee samples as told by your doctor. You may need to collect a pee sample: ? 24 hours after a stone comes out. ? 8?12 weeks after a stone comes out, and every 6?12 months after that. ? Strain your pee every time you pee (urinate), for as long as told. Use the strainer that your doctor recommends. ? Do not throw out the stone. Keep it so that it can be tested by your doctor. ? Keep all follow-up visits as told by your doctor. This is important. You may need follow-up tests. How is this prevented? To prevent another kidney stone: ? Drink enough fluid to keep your pee pale yellow. This is the best way to prevent kidney stones. ? Eat healthy foods. ? Avoid certain foods as told by your doctor. You may be told to eat less protein. ? Stay at a healthy weight. Where to find more information ? National Kidney Foundation (NKF): www.kidney.org ? [employer] (UCF): www.urologyhealth.org Contact a doctor if: ? You have pain that gets worse or does not get better with medicine. Get help right away if: ? You have a fever or chills. ? You get very bad pain. ? You get new pain in your belly (abdomen). ? You pass out (faint). ? You cannot pee. Summary ? Kidney stones are rock-like masses that form inside of the kidneys. ? Kidney stones can cause very bad pain and can block the flow of pee. ? The stones will often pass out of the body through peeing. ? Drink enough fluid to keep your pee pale yellow. This information is not intended to replace advice given to you by your health care provider. Make sure you discuss any questions you have with your health care provider. Document Revised: 06/07/2022 Document Reviewed: 06/07/2022 [employer] Patient Education ? 2022 [employer] Normal [facility] Consent for Treatmenton 11-18 Consent for Treatment [id number] .00TIFF Normal [facility] MRI Shoulder w/o Contrast [place] 12-14-2023 MRI Shoulder w/o Contrast Left Exam Date/Time: 12/14/2023 13:33 EST Reason for Exam: [id number] Report IMPRESSION: Large full-thickness rotator cuff tear involving entire supraspinatus, portion of infraspinatus, and possibly portion of subscapularis as discussed. EXAMINATION: MRI Shoulder w/o Contrast Left HISTORY: Left shoulder pain for 5 weeks with injury shoveling snow. TECHNIQUE: Routine non-contrast MRI of the shoulder , left side COMPARISON: Radiographs 11/07/2023. RESULT: Rotator Cuff Tendons: Large full-thickness rotator cuff tear involving entire supraspinatus, some anterior fibers of infraspinatus with other intact more posterior fibers of infraspinatus, and also possible tearing of some more superior fibers of subscapularis with other intact appearing more inferior fibers of subscapularis. Underlying tendinosis. Medial retraction of the torn fibers of subscapularis to near the acromioclavicular joint level. Teres minor appears intact. Long Head Biceps Tendon: Intra-articular tendinosis and/or partial tearing, without complete tear. Muscle: Diffuse edema involving supraspinatus and infraspinatus, reactive to the above tear. No associated muscle volume loss. Labrum: Areas of fraying/tearing. Bones and Marrow: No evidence of fracture or bone marrow replacing process. Areas of reactive cystic change at the rotator cuff insertions. Glenohumeral Joint: Osteophytes with at least small areas of chondral loss. Small to moderate joint effusion. Acromioclavicular Joint: Mild degenerative changes with undersurface osteophytes. Other: Fluid extending into the subacromial subdeltoid bursa. Report Ordering Provider: Heidi Choudhury FINAL REPORT Dictated: 12/14/2023 3:31 pm Juan Reid MD. Signed (Electronic Signature): 12/14/2023 3:31 pm Signed by: Juan Reid MD Transcribed by: RHONDA Technologist: CECY Technical Comments None Normal [facility] RAD - MRI Screening Formon 0 12-14-2023 RAD - MRI Screening Form [id number]. 00TIFF Normal [facility] Physician Orderon 12-13-2023 Physician Order [id number] .00TIFF Normal [facility] ED Note-Physicianon 11-09-19 ED Note-Physician [id number] .00TIFF Normal [facility] RAD - MISCon 01-24-2024 RAD - MISC [id number]. 00TIFF Normal [facility] XR SHOULDER LEFT (MIN 2 VIEW S)on 11-07-2023 XR SHOULDER LEFT (MIN 2 VIEWS) EXAM: XR SHOULDER LEFT (MIN 2 VIEWS) HISTORY: pain in left shoulder COMPARISON: None. IMPRESSION: FINDINGS/IMPRESSION: 1. Mild age expected degenerative change acromioclavicular glenohumeral joint. 2. No calcific bursitis. 3. No fracture or dislocation. Interpreted by: Laurent Donis Jr., MD Signed by: Laurent Donis Jr., MD 11/07/23 Final result Normal [facility] XR Shoulder - left 2 Viewson 11-07-2023 FINDINGS/IMPRESSION: 1. Mild age expected degenerative change acromioclavicular glenohumeral joint. 2. No calcific bursitis. 3. No fracture or dislocation. [facility] EXAM: XR SHOULDER LEFT (MIN 2 VIEWS) HISTORY: pain in left shoulder COMPARISON: None. [facility] Laurent Donis Jr., MD - 11/07/2023 EXAM: XR SHOULDER LEFT (MIN 2 VIEWS) HISTORY: pain in left shoulder COMPARISON: None. IMPRESSION: FINDINGS/IMPRESSION: 1. Mild age expected degenerative change acromioclavicular glenohumeral joint. 2. No calcific bursitis. 3. No fracture or dislocation. [facility] Radiology Study observation (narrative) [facility] XR Shoulder - left 2 ViewsOr dered By: Laurent Donis on 11-07-2023 [facility] Work Phone: Consent for Procedure/Surger yon 09-02-2023 Consent for Procedure/Surgery [id number] .00TIFF Normal [facility] RAD - MISCon 08-15-2023 RAD - MISC [id number] .00TIFF Normal [facility] Provider Letteron 07-28-2023 Provider Letter July 28, 2023 HELEN RICO [address] [place] [address] To Whom It May Concern, Aleyda Gruber - Please allow the above patient to return to work with no restrictions 07/28/2023. Sincerely, Joi Cuellar PA-C [address] [address] [facility] Ambulatory Visit Summaryon 1 Ambulatory Visit Summary HELEN RICO :1975 Visit Date:07/25/2023 Ambulatory Visit Instructions Your Diagnosis Kidney stone Ureteral stone History of kidney stones Smoker Tests Performed Urnls Dip Stick Auto w/o Microscopy POC 00153 XR Abdomen 1 View -- Results Pending -- Please visit your patient portal for your results or contact your primary care physician. Your Care Team Attending Physician - ROSETTE GÓMEZ, Yandel Campos Primary Care Physician - Joi Cuellar PA-C Referring Physician - Joi Cuellar PA-C This Is Your Medications List Contact prescribing physician if questions or concerns buPROPion (Wellbutrin XL 300 mg/24 hours Tab-ER) dicyclomine (dicyclomine 10 mg Cap) famotidine (famotidine 20 mg Tab) ondansetron (Zofran ODT 4 mg Tab-Dis) propranolol (propranolol 20 mg Tab) tamsulosin (tamsulosin 0.4 mg Cap) Procedures Performed Exostectomy (07/09/2020), Ganglion cyst of left wrist (05/14/2020). Discharge Vitals Height 175 cm Height 69 in Weight 74.8 kg Weight 164.56 lb BMI 24.42 What to do next Scheduled Follow-Up Appointments Tuesday 9:40 AM EST With: Joi Cuellar PA-C Where: [facility] Patient Educationon 07-25-20 Patient Education Nephrology Dietary Guidelines to Help Prevent Kidney Stones Kidney stones are deposits of minerals and salts that form inside your kidneys. Your risk of developing kidney stones may be greater depending on your diet, your lifestyle, the medicines you take, and whether you have certain medical conditions. Most people can lower their chances of developing kidney stones by following the instructions below. Your dietitian may give you more specific instructions depending on your overall health and the type of kidney stones you tend to develop. What are tips for following this plan? Reading food labels ? Choose foods with no salt added or low-salt labels. Limit your salt (sodium) intake to less than 1,500 mg a day. ? Choose foods with calcium for each meal and snack. Try to eat about 300 mg of calcium at each meal. Foods that contain 200?500 mg of calcium a serving include: ? 8 oz (237 mL) of milk, calcium-fortifiednon- dairy milk, and calcium-fortifiedfrui t juice. Calcium-fortified means that calcium has been added to these drinks. ? 8 oz (237 mL) of kefir, yogurt, and soy yogurt. ? 4 oz (114 g) of tofu. ? 1 oz (28 g) of cheese. ? 1 cup (150 g) of dried figs. ? 1 cup (91 g) of cooked broccoli. ? One 3 oz (85 g) can of sardines or mackerel. Most people need 1,000?1,500 mg of calcium a day. Talk to your dietitian about how much calcium is recommended for you. Shopping ? Buy plenty of fresh fruits and vegetables. Most people do not need to avoid fruits and vegetables, even if these foods contain nutrients that may contribute to kidney stones. ? When shopping for convenience foods, choose: ? Whole pieces of fruit. ? Pre-made salads with dressing on the side. ? Low-fat fruit and yogurt smoothies. ? Avoid buying frozen meals or prepared deli foods. These can be high in sodium. ? Look for foods with live cultures, such as yogurt and kefir. ? Choose high-fiber grains, such as whole-wheat breads, oat bran, and wheat cereals. Cooking ? Do not add salt to food when cooking. Place a salt shaker on the table and allow each person to add his or her own salt to taste. ? Use vegetable protein, such as beans, textured vegetable protein (TVP), or tofu, instead of meat in pasta, casseroles, and soups. Meal planning ? Eat less salt, if told by your dietitian. To do this: ? Avoid eating processed or pre-made food. ? Avoid eating fast food. ? Eat less animal protein, including cheese, meat, poultry, or fish, if told by your dietitian. To do this: ? Limit the number of times you have meat, poultry, fish, or cheese each week. Eat a diet free of meat at least 2 days a week. ? Eat only one serving each day of meat, poultry, fish, or seafood. ? When you prepare animal protein, cut pieces into small portion sizes. For most meat and fish, one serving is about the size of the palm of your hand. ? Eat at least five servings of fresh fruits and vegetables each day. To do this: ? Keep fruits and vegetables on hand for snacks. ? Eat one piece of fruit or a handful of berries with breakfast. ? Have a salad and fruit at lunch. ? Have two kinds of vegetables at dinner. ? Limit foods that are high in a substance called oxalate. These include: ? Spinach (cooked), rhubarb, beets, sweet potatoes, and Vincentian chard. ? Peanuts. ? Potato chips, serbian fries, and baked potatoes with skin on. ? Nuts and nut products. ? Chocolate. ? If you regularly take a diuretic medicine, make sure to eat at least 1 or 2 servings of fruits or vegetables that are high in potassium each day. These include: ? Avocado. ? Banana. ? [place], prune, carrot, or tomato juice. ? Baked potato. ? Cabbage. ? Beans and split peas. Lifestyle ? Drink enough fluid to keep your urine pale yellow. This is the most important thing you can do. Spread your fluid intake throughout the day. ? If you drink alcohol: ? Limit how much you use to: ? 0?1 drink a day for women who are not . ? 0?2 drinks a day for men. ? Be aware of how much alcohol is in your drink. In the [place] one drink equals one 12 oz bottle of beer (355 mL), one 5 oz glass of wine (148 mL), or one 1? oz glass of hard liquor (44 mL). ? Lose weight if told by your health care provider. Work with your dietitian to find an eating plan and weight loss strategies that work best for you. General information ? Talk to your health care provider and dietitian about taking daily supplements. You may be told the following depending on your health and the cause of your kidney stones: ? Not to take supplements with vitamin C. ? To take a calcium supplement. ? To take a daily probiotic supplement. ? To take other supplements such as magnesium, fish oil, or vitamin B6. ? Take uaml-dvs-vzusshc and prescription medicines only as told by your health care provider. These include supplements. What foods should I limit? Limit your in (more content not included)... [facility] Formson 07-20-2023 Forms [id number] .00CD:127 [facility] Physician Referralon 023 Physician Referral [id number]:127 [facility] RAD - MISCon 07-11-2023 RAD - MISC [id number]. 00CD:127 [facility] Family Medicine Office/Clini c Noteon 07-10-2023 Family Medicine Office/Clinic Note Chief Complaint possible kidney stones HPI Staff complaints of possible kidney stones Onset:Last night Characteristics:Hx of kidney stones, last one was about a year ago, usually about 5-6 hours of pain and he can usually get past it but the pain is too bad. OTC tried:none History of Present Illness I have reviewed staff HPI and it is correct. Helen Rico is a 48-year-old male presents to the office for concern regarding possible kidney stones. A female adult accompanies him. The patient began experiencing discomfort at 2:30 AM this morning and has a history of kidney stones. Their most recent episode of kidney stones occurred about a year ago, and they were unable to pass the stone on their own. He underwent X-rays and other examinations in the past to analyze their kidney stones. The most recent episode related to kidney stones was about a year ago, but they mention a more distant episode that occurred approximately 8 years ago. They have had a couple of instances where it took several days to pass the stones, with the duration varying. He reports feeling discomfort on the right side and notes that the kidney stone has not moved down into the groin area yet. However, they mention that the stone is in motion. He has been doing better. He is still not eating much but he has not been vomiting Patient has no other questions or concerns at this time. Review of Systems PHQ Score Initial Depression Screen Score: 0 All negative except as noted in the HPI Physical Exam Vitals & Measurements HR: 76(Peripheral) BP: 162/98 SpO2: 97% HT: 69 in HT: 175 cm WT: 74.8 kg WT: 164.56 lb BMI: 24.42 General: patient appears extremely uncomfortable, no acute distress. Lungs: Normal respiratory effort and clear to auscultation Cardio: Regular rate and rhythm, normal S1 and S2, no murmur, no rub Abdomen: Significant tenderness to palpation. Normal active bowel sounds CVA: positive tenderness bilaterally. Neurologic: Grossly normal Lymph Nodes: No cervical adenopathy, nodes normal Mental Status: Alert and oriented x3. Normal mood and affect Assessment/Plan Total time spent preparing the chart, conducting of the encounter with the patient and family and time spent documenting, reviewing, and ordering tests was 30 minutes. 1. History of kidney stones (Z87.442: Personal history of urinary calculi) I do believe patients are suffering from kidney stones at this time based on urinalysis, presentation, and medical history. Advised patient fluids and prescription for Flomax four 0.4 mg daily, sent to local pharmacy for 10 days. Patient was educated on signs of infection and warning signs on when to proceed to the nearest emergency department for further evaluation. KUB imaging ordered at [facility]. Patient is to get x-ray for further evaluation. Advised to contact the office if symptoms do not begin to improve over the next 2 to 3 days or if symptoms drastically worsen, to proceed to the emergency room. 2. Hematuria (R31.9: Hematuria, unspecified) See problem #1 3. Abdominal pain (R10.9: Unspecified abdominal pain) See problem #1. 4. BMI 24.0-24.9, adult (Z68.24: Body mass index [BMI] 24.0-24.9, adult) The standard range for ages 18 and older is >=18.5 and < 25 kg/m2. Your BMI today was within this range. Your BMI and weight management will be followed at subsequent visits. 5. Tobacco use (Z72.0: Tobacco use) We strongly recommend to quit tobacco use. Cigarette smoking harms nearly every organ of the body, causes many diseases, and reduces the health of smokers in general. Quitting smoking lowers your risk for smoking-related diseases and can add years to your life. We encourage you to visit www.smokefree.gov access to helpful resources including free telephone support. If you decide on prescription treatment to help you quit, we would be happy to provide these. Portions of this record may have been created with voice recognition artificial intelligence software, specifically [employer], [employer] and or [employer]. Substitutions may have occurred due to the inherent limitations of voice recognition and artificial intelligence software. Patient verbalized understanding and is agreeable to plan and course of treatment. This documentation was completed by voice-activated device and software. Inaccuracies compared to the original dictation of this provider are possible although this document has been overread and corrected. This note has been generated by [employer] and edited by Donavan Martinez, Quality Program Research Specialist. Follow-up With When Contact Information Joi Cuellar PA-C [address] [place] [phone] Additional Instructions: Appointment has already been scheduled Patient Education Kidney Stones, Bjby-lz-Ovmi Problem List/Past Medical History Ongoing BMI 28.0-28.9,adult Deformity of left wrist Generalized anxiety disorder with panic attacks Left wrist pain Observe (more content not included)... Normal [facility] Comment on above: Result Comment: Elec tronically Signed By: Joi Cuellar PA-C\.br\Date and Time Signed: 07/10/23 20:26 EDT XR ABDOMEN (KUB) (SINGLE AP VIEW)on 07-08-2023 XR ABDOMEN (KUB) (SINGLE AP VIEW) EXAM: XR ABDOMEN (KUB) (SINGLE AP VIEW) HISTORY: Abdominal pain, unspecified abdominal location. Hematuria. COMPARISON: CT abdomen and pelvis 04/21/2016. IMPRESSION: FINDINGS/IMPRESSION: 1. Right renal calculi, predominantly superior pole, measuring up to 7 mm. 2. No definite left-sided stones (although multiple stones were present in [address]). 3. Likely 7 mm stone distal right ureter near the ischial spine. Interpreted by: Laurent Donis Jr., MD Signed by: Laurent Donis Jr., MD 07/08/23 Final result Normal [facility] Ambulatory Visit Summaryon 0 07-05-2023 Ambulatory Visit Summary HELEN RICO :1975 Visit Date:07/05/2023 Ambulatory Visit Instructions Your Diagnosis History of kidney stones Hematuria BMI 24.0-24.9, adult Tobacco use Abdominal pain Tests Performed Urnls Dip Stick Auto w/o Microscopy POC 09839 KUB -- Results Pending -- Please visit your patient portal for your results or contact your primary care physician. Your Care Team Attending Physician - Joi Cuellar PA-C Primary Care Physician - Joi Cuellar PA-C This Is Your Medications List tamsulosin (tamsulosin 0.4 mg Cap) Contact prescribing physician if questions or concerns buPROPion (Wellbutrin XL 300 mg/24 hours Tab-ER) dicyclomine (dicyclomine 10 mg Cap) famotidine (famotidine 20 mg Tab) ondansetron (Zofran ODT 4 mg Tab-Dis) propranolol (propranolol 20 mg Tab) Procedures Performed Exostectomy (07/09/2020), Ganglion cyst of left wrist (05/14/2020), None. Discharge Vitals Heart Rate (Peripheral) 76 Blood Pressure 146/96 Height 69 in Height 175 cm Weight 164.56 lb Weight 74.8 kg BMI 24.42 What to do next Scheduled Follow-Up Appointments Tuesday 9:40 AM EST With: Joi Cuellar PA-C Where: [facility] [place] Normal [facility] Patient Educationon 07-05-20 Patient Education Urology Kidney Stones Kidney stones are rock-like masses that form inside of the kidneys. Kidneys are organs that make pee (urine). A kidney stone may move into other parts of the urinary tract, including: ? The tubes that connect the kidneys to the bladder (ureters). ? The bladder. ? The tube that carries urine out of the body (urethra). Kidney stones can cause very bad pain and can block the flow of pee. The stone usually leaves your body (passes) through your pee. You may need to have a doctor take out the stone. What are the causes? Kidney stones may be caused by: ? A condition in which certain glands make too much parathyroid hormone (primary hyperparathyroidism). ? A buildup of a type of crystals in the bladder made of a chemical called uric acid. The body makes uric acid when you eat certain foods. ? Narrowing (stricture) of one or both of the ureters. ? A kidney blockage that you were born with. ? Past surgery on the kidney or the ureters, such as gastric bypass surgery. What increases the risk? You are more likely to develop this condition if: ? You have had a kidney stone in the past. ? You have a family history of kidney stones. ? You do not drink enough water. ? You eat a diet that is high in protein, salt (sodium), or sugar. ? You are overweight or very overweight (obese). What are the signs or symptoms? Symptoms of a kidney stone may include: ? Pain in the side of the belly, right below the ribs (flank pain). Pain usually spreads (radiates) to the groin. ? Needing to pee often or right away (urgently). ? Pain when going pee (urinating). ? Blood in your pee (hematuria). ? Feeling like you may vomit (nauseous). ? Vomiting. ? Fever and chills. How is this treated? Treatment depends on the size, location, and makeup of the kidney stones. The stones will often pass out of the body through peeing. You may need to: ? Drink more fluid to help pass the stone. In some cases, you may be given fluids through an IV tube put into one of your veins at the hospital. ? Take medicine for pain. ? Make changes in your diet to help keep kidney stones from coming back. Sometimes, medical procedures are needed to remove a kidney stone. This may involve: ? A procedure to break up kidney stones using a beam of light (laser) or shock waves. ? Surgery to remove the kidney stones. Follow these instructions at home: Medicines ? Take jijb-twk-geynbpm and prescription medicines only as told by your doctor. ? Ask your doctor if the medicine prescribed to you requires you to avoid driving or using heavy machinery. Eating and drinking ? Drink enough fluid to keep your pee pale yellow. You may be told to drink at least 8?10 glasses of water each day. This will help you pass the stone. ? If told by your doctor, change your diet. This may include: ? Limiting how much salt you eat. ? Eating more fruits and vegetables. ? Limiting how much meat, poultry, fish, and eggs you eat. ? Follow instructions from your doctor about eating or drinking restrictions. General instructions ? Collect pee samples as told by your doctor. You may need to collect a pee sample: ? 24 hours after a stone comes out. ? 8?12 weeks after a stone comes out, and every 6?12 months after that. ? Strain your pee every time you pee (urinate), for as long as told. Use the strainer that your doctor recommends. ? Do not throw out the stone. Keep it so that it can be tested by your doctor. ? Keep all follow-up visits as told by your doctor. This is important. You may need follow-up tests. How is this prevented? To prevent another kidney stone: ? Drink enough fluid to keep your pee pale yellow. This is the best way to prevent kidney stones. ? Eat healthy foods. ? Avoid certain foods as told by your doctor. You may be told to eat less protein. ? Stay at a healthy weight. Where to find more information ? National Kidney Foundation (NKF): www.kidney.org ? [employer] (UCF): www.urologyhealth.org Contact a doctor if: ? You have pain that gets worse or does not get better with medicine. Get help right away if: ? You have a fever or chills. ? You get very bad pain. ? You get new pain in your belly (abdomen). ? You pass out (faint). ? You cannot pee. Summary ? Kidney stones are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 through the thoracic apices using a multichannel CT scanner, 2mm axial reformat images were performed. Sagittal and coronal reformatimages of the cervical spine were performed by the technologist.FINDINGS :No fracture or malalignment identified.No prevertebral soft tissue swelling.Disc space narrowing and marginal spurring is present at C4-5, C5-C6 andC6-7. There is moderately severe facet arthropathy at C5-6 on the left.Prominent uncovertebral overgrowth at the C6-7 level on the right isnoted.The visualized skull base and lung apices are unremarkable.IMPRESSI ON:No acute osseous abnormality or malalignment identified. Moderatelysevere degenerative change in the mid and lower cervical spine.Interpreting Physician: REVA GUILLAUME M.D.Trans: : cc: Normal [facility] Vital Signs Date Time Vital Sign Value Performing Clinician Facility 06-14-2024 09:00-0400 Blood Pressure Location [facility] [place] 06-14-2024 09:00-0400 Body temperature 97.88 [degF] [facility] 06-14-2024 09:00-0400 Diastolic blood pressure 82 mm[Hg] [facility] 06-14-2024 09:00-0400 Heart rate 55 /min [facility] 06-14-2024 09:00-0400 Respiratory rate 18 /min [facility] 06-14-2024 09:00-0400 SaO2% (BldA) [Mass fraction] 98 % [facility] 06-14-2024 09:00-0400 Systolic blood pressure 142 mm[Hg] [facility] 2024 12:54-0400 Diastolic blood pressure 86 mm[Hg] DIANNE INDIGO [facility] 2024 12:54-0400 Heart rate 90 /min DIANNE INDIGO [facility] 2024 12:54-0400 Respiratory rate 16 /min DIANNE INDIGO [facility] 2024 12:54-0400 Systolic blood pressure 138 mm[Hg] DIANNE INDIGO [facility] 03-16-2024 10:34-0400 Body temperature 97.88 [degF] Joi Cuellar [facility] 03-16-2024 10:34-0400 Diastolic blood pressure 76 mm[Hg] Joi Cuellra [facility] 03-16-2024 10:34-0400 Heart rate 78 /min Joi Cuellar [facility] 03-16-2024 10:34-0400 Respiratory rate 18 /min Joi Cuellar [facility] 03-16-2024 10:34-0400 SaO2% (BldA) [Mass fraction] 99 % Joi Cuellar [facility] 03-16-2024 10:34-0400 Systolic blood pressure 146 mm[Hg] Joi Robertsonzier [facility] 11-07-2023 15:56-0500 Body height 177.8 cm Clayton Collier MD Work Phone: [facility] 11-07-2023 15:56-0500 Body mass index (BMI) [Ratio] 23.82 kg/m2 Clayton Collier MD Work Phone: [facility] 11-07-2023 15:56-0500 Body temperature 98.1 [degF] Clayton Collier MD Work Phone: [facility] 11-07-2023 15:56-0500 Body weight 75.3 kg Clayton Collier MD Work Phone: [facility] 11-07-2023 15:56-0500 Diastolic blood pressure 84 mm[Hg] Clayton Collier MD Work Phone: [facility] 11-07-2023 15:56-0500 Heart rate 67 /min Clayton Collier MD Work Phone: [facility] 11-07-2023 15:56-0500 Respiratory rate 18 /min Clayton Collier MD Work Phone: [facility] 11-07-2023 15:56-0500 SaO2% (BldA) [Mass fraction] 98 % Clayton Collier MD Work Phone: [facility] 11-07-2023 15:56-0500 Systolic blood pressure 153 mm[Hg] Clayton Collier MD Work Phone: [facility] 07-05-2023 12:29-0400 Diastolic blood pressure 98 mm[Hg] Joi Cuellar [facility] 07-05-2023 12:29-0400 Mean blood pressure 119 mm[Hg] Joi Cuellar [facility] 07-05-2023 12:29-0400 Systolic blood pressure 162 mm[Hg] Joi Cuellar [facility] 07-05-2023 11:56-0400 Diastolic blood pressure 96 mm[Hg] Joi Cuellar [facility] 07-05-2023 11:56-0400 Mean blood pressure 113 mm[Hg] Joi Cuellar [facility] 07-05-2023 11:56-0400 Systolic blood pressure 146 mm[Hg] Joi Cuellar [facility] 07-05-2023 11:41-0400 Blood Pressure Location Joi Cuellar [facility] 07-05-2023 11:41-0400 Diastolic blood pressure 112 mm[Hg] Joi Cuellar [facility] 07-05-2023 11:41-0400 Heart rate 76 /min Joi Cuellar [facility] 07-05-2023 11:41-0400 SaO2% (BldA) [Mass fraction] 97 % Joi Cuellar [facility] 07-05-2023 11:41-0400 Systolic blood pressure 180 mm[Hg] Joi Cuellar [facility] 06-14-2023 11:14-0400 Blood Pressure Location Joi Cuellar [facility] 06-14-2023 11:14-0400 Diastolic blood pressure 70 mm[Hg] Joi Cuellar [facility] 06-14-2023 11:14-0400 Heart rate 52 /min Joi Cuellar [facility] 06-14-2023 11:14-0400 Respiratory rate 16 /min Joi Cuellar [facility] 06-14-2023 11:14-0400 SaO2% (BldA) [Mass fraction] 100 % Joi Cuellar [facility] 06-14-2023 11:14-0400 Systolic blood pressure 110 mm[Hg] Joi Cuellar [facility] 05-17-2023 11:49-0400 Blood Pressure Location Joi Cuellar [facility] 05-17-2023 11:49-0400 Diastolic blood pressure 78 mm[Hg] Joi Cuellar [facility] 05-17-2023 11:49-0400 Heart rate 80 /min Joi Cuellar [facility] 05-17-2023 11:49-0400 Respiratory rate 16 /min Joi Cuellar [facility] 05-17-2023 11:49-0400 SaO2% (BldA) [Mass fraction] 98 % Joi Cuellar [facility] 05-17-2023 11:49-0400 Systolic blood pressure 122 mm[Hg] Joi Cuellar [facility] 02-08-2023 09:05-0400 Blood Pressure Location Joi Cuellar [facility] 02-08-2023 09:05-0400 Diastolic blood pressure 100 mm[Hg] Joi Cuellar [facility] 02-08-2023 09:05-0400 Heart rate 65 /min Joi Cuellar [facility] 02-08-2023 09:05-0400 Respiratory rate 20 /min Joi Cuellar [facility] 02-08-2023 09:05-0400 SaO2% (BldA) [Mass fraction] 97 % Joi Cuellar [facility] 02-08-2023 09:05-0400 Systolic blood pressure 158 mm[Hg] Joi Cuellar [facility] Encounters Encounter Date Encounter Type Care Provider Facility Start: 07-12-2024 ambulatory Yandel Christiansen ty:[id number] Start: 06-14-2024 ambulatory Becky Christiansen ty: [place] Start: 06-14-2024 End: 06-14-2024 [facility] Start: 06-12-2024 End: 06-12-2024 Emergency department patient visit DEXTERSHIELA DAVIS [facility] Start: 06-11-2024 ambulatory Joi Christiansen ty: [place] Start: 05-21-2024 ambulatory Yandel Christiansen ty: Zamzam Start: 2024 End: 2024 ambulatory DIANNE David INDIGO Facility: [facility] Start: 2024 End: 2024 Patient encounter procedure DIANNE SOOD [facility] Start: 03-19-2024 End: 03-21-2024 ambulatory DEXTER A LINDA [facility] Start: 03-19-2024 End: 03-21-2024 Subsequent hospital visit by physician [facility] Additional Xray At [facility] Comment on above: Dysuria Start: 03-16-2024 End: 03-16-2024 ambulatory Joi Cuellar Facility:[facility] Start: 03-16-2024 End: 03-16-2024 Patient encounter procedure Joi Cuellar [facility] [place] Start: 12-27-2023 End: 12-27-2023 ambulatory LESLIE ZHAO Not Available Start: 12-14-2023 End: 12-14-2023 ambulatory Heidi Choudhury Facility:[facility] Start: 12-14-2023 End: 12-14-2023 Patient encounter procedure Heidi Choudhury [facility] Start: 11-11-2023 End: 11-11-2023 ambulatory HEIDI CHOUDHURY Not Available Start: 11-07-2023 End: 11-07-2023 Emergency department patient visit Clayton Collier MD Work Phone: [facility] ED Comment on above: Sprain of left shoul kavitha, unspecified shoulder sprain type, initial encounter (Primary Dx); Rotator cuff dysfunction, left Start: 09-15-2023 ambulatory Yandel Christiansen ty:CD:[id number] Start: 09-06-2023 End: 09-06-2023 ambulatory Joi Cuellar Facility:[facility] Start: 09-06-2023 End: 09-06-2023 Patient encounter procedure Joi Cuellar [facility] [place] Start: 07-25-2023 End: 07-25-2023 ambulatory Joi Cuellar Facility:[facility] Start: 07-12-2023 ambulatory Yandel LANDRUM Facility :[facility] Start: 07-08-2023 End: 07-10-2023 ambulatory DEXTER DAVIS [facility] Start: 07-05-2023 End: 07-05-2023 ambulatory Joi Cuellar Facility:[facility] Start: 07-05-2023 End: 07-05-2023 Patient encounter procedure Joi Cuellar [facility] [place] Start: 06-14-2023 End: 06-14-2023 Lab Drop off Joi Cuellar [facility] Start: 06-14-2023 End: 06-14-2023 ambulatory Joi Cuellar Facility:[facility] Start: 06-14-2023 End: 06-14-2023 Patient encounter procedure Joi Cuellar [facility] [place] Start: 05-17-2023 End: 05-17-2023 Patient encounter procedure Joi Cuellar [facility] [place] Start: 02-08-2023 End: 02-08-2023 Patient encounter procedure Joi Cuellar [facility] [place] Start: 08-17-2021 End: 08-17-2021 Subsequent hospital visit by physician Amy Covid19 Pat Screening Schedule [facility] PRE ADMIT Comment on above: Arrived Start: 07-23-2020 End: 07-25-2020 Subsequent [facility] Comment on above: Right wrist pain Start: 07-23-2020 End: 07-25-2020 Subsequent hospital visit by physician Dexter Dvais [facility] [place] [facility] Start: 06-25-2020 End: 06-27-2020 Subsequent [facility] Comment on above: Right hand pain Pain of left thumb Start: 05-28-2020 End: 05-30-2020 Subsequent hospital visit by physician Amy [facility] Comment on above: Ganglion cyst Start: 05-28-2020 End: 05-30-2020 Subsequent [facility] Start: 04-28-2020 End: 2020 Subsequent hospital visit by physician Amy Additional Xray At [facility] Comment on above: Anesthesia of skin; Pain in left wrist; Unspecified acquired deformity of left forearm Anesthesia of skin; Pain in left wrist; Acquired deformity of left forearm Start: 07-08-2017 Ambulatory [facility] lity:[place] Start: 07-08-2017 End: 07-08-2017 Ambulatory [facility] Start: 07-01-2017 End: 07-01-2017 Emergency department patient visit Steven Hines Facility:[place] Procedures Date Procedure Procedure Detail Performing Clinician Start: 03-19-2024 Radiologic exam abdo men 1 view Joi Cuellar PA-C Work Phone: Start: 11-07-2023 Radex shoulder compl ete minimum 2 views Clayton Collier MD Work Phone: Start: 07-23-2020 Radex wrist complete minimum 3 views Leslie Zhao Other Phone: Start: 07-09-2020 Excision of exostosi s of bone Joi Cuellar Comment on above: rt. wrist/hand Start: 06-25-2020 End: 06-25-2020 Radex hand minimum 3 views Leslie Zhao Other Phone: Start: 05-28-2020 Radex wrist complete minimum 3 views Leslie Zhao Other Phone: Start: 05-14-2020 Ganglion cyst of lef t wrist (disorder) Joi Cuellar Comment on above: removal of Start: 04-28-2020 Radex wrist complete minimum 3 views Dexter René Linda Work Phone: Start: 04-28-2020 Radex hand minimum 3 views Dexter Davis Work Phone: None (qualifier value) Joi Robertsonzier Plan of Treatment Date Care Activity Detail Author Start: 07-01-2027 DTaP/Tdap/Td vaccine (3 - Td or Tdap) DTaP/Tdap/Td vaccine (3 - Td or Tdap) [facility] Start: 05-17-2024 Influenza vaccination Flu vacc ine (Season Ended) [facility] Start: 05-17-2023 Influenza vaccination Flu vaccine (# 1) [facility] Start: 06-17-2021 Influenza vaccination Flu vaccine (# 1) [facility] Work Phone: Start: 06-17-2020 Influenza vaccination Flu vaccine (# 1) [place] Start: 2020 Screening for malign ant neoplasm of colon [facility] Start: 2015 Lipid panel [facility] Start: 1994 DTaP/Tdap/Td vaccine (1 - Tdap) DTaP/Tdap/Td vaccine (1 - Tdap) [place] Start: 1993 Hepatitis C screening Hepatitis C sc reen [facility] Start: 1990 HIV screening HIV screen [facility] Start: 1987 COVID-19 Vaccine (1) COVID-19 Vaccin e (1) [facility] Work Phone: Start: 1987 Depression Screen Depression Screen [facility] Start: 1981 Pneumococcal 0-64 ye ars Vaccine (1 - PCV) Pneumococcal 0-64 years Vaccine (1 - PCV) [facility] Start: 1981 Pneumococcal 0-64 ye ars Vaccine (1 of 1 - PPSV23) Pneumococcal 0-64 years Vaccine (1 of 1 - PPSV23) [facility] [place] Start: 1981 Pneumococcal 0-64 ye ars Vaccine (1 of 2 - PCV) Pneumococcal 0-64 years Vaccine (1 of 2 - PCV) [facility] Start: 1981 Pneumococcal 0-64 ye ars Vaccine (1 of 2 - PPSV23) Pneumococcal 0-64 years Vaccine (1 of 2 - PPSV23) [employer] Phone: Start: 1975 COVID-19 Vaccine (#1) COVID-19 Vacci ne (#1) [facility] Start: 1975 Hepatitis B vaccine (1 of 3 - 3-dose series) Hepatitis B vaccine (1 of 3 - 3-dose series) [facility] Start: 1975 Hepatitis C screening Hepatitis C sc reen [facility] Phone: End: 08-17-2021 COVID-19 COVID-19 Lab Routine Once for 1 Occurrences starting 08/17/2021 until 08/17/2021 [employer] Phone: Comment on above: Once for 1 Occurrenc es starting 08/17/2021 until 08/17/2021 COVID-19 COVID-19 Lab Rou donna 08/17/2021 3:50 PM EDT [facility] Work Phone: Immunizations Immunization Date Immunization Notes Care Provider Kathy agosto 07-01-2017 tetanus toxoid, reduced diphtheria toxoid, and acellular pertussis vaccine, adsorbed Joi Cuellar [facility] 02-25-2014 tetanus toxoid, reduced diphtheria toxoid, and acellular pertussis vaccine, adsorbed Joi Cuellar [facility] NEGATED: Highlighted row has not occurred!07-05-2023 influenza virus vaccine, unspecified formulation Joi Cuellar [facility] José Miguel Franco NEGATED: Highlighted row has not occurred!11-04-2020 influenza virus vaccine, unspecified formulation Joi Cuellar [facility] José Miguel Franco NEGATED: Highlighted row has not occurred!10-06-2020 influenza virus vaccine, unspecified formulation Joi Cuellar [facility] [place] Payers Date Payer Category Payer Unknown BCBS BCBS OUT OF STATE [id number] 2019-Present [address] [place] [address] [id number] 2018 Unknown [id number] 1975 Unknown [id number] [id number] 1975 Unknown [id number] 2.16.840.1.618898.3.579.2.1259 1975 Unknown [id number] 2.16.840.1.427235.3.579.2.174 1975 Unknown [id number] 2.16.840.1.671822.3.579.2.174 1975 Unknown [id number] 2.16.840.1.901799.3.579.2.174 1975 Unknown [id number] 2.16.840.1.827819.3.579.2.174 1975 Unknown [id number] 2.16.840.1.264541.3.579.2.174 1975 Unknown [id number] 2.16.840.1.598788.3.579.2.174 1975 Unknown [id number] 2.16.840.1.576913.3.579.2.727 1975 Unknown [id number] 2.16.840.1.549675.3.579.2.727 1975 Unknown [id number] 2.16.840.1.998730.3.579.2.727 1975 Unknown [id number] 2.16.840.1.826240.3.579.2.72 1975 Unknown [id number] 2.16.840.1.479020.3.579.2.72 1975 Unknown [id number] 2.16.840.1.534370.3.579.2.727 1975 Unknown [id number] 2.16.840.1.181891.3.579.2.727 1975 Unknown [id number] 2.16.840.1.042847.3.579.2.727 1975 Unknown [id number] 2.16.840.1.820933.3.579.2.72 1975 Unknown [id number] 2.16.840.1.216427.3.579.2.727 1975 Unknown [id number] 2.16.840.1.017131.3.579.2. 1975 Unknown [id number] [id number] Self-pay [id number] Social History Date Type Detail Facility Start: 07-09-2017 Tobacco smoking stat us [facility]IS Unknown if ever smoked [facility] Work Phone: Start: 1975 Sex Assigned At Not on file O [employer] Work Phone: Start: 12-12-2014 End: 11-07-2023 Tobacco smoking status [facility]IS [facility] of tobacco use Cigarette Smoker [place] Start: 12-12-2014 End: 11-07-2023 Cigarettes smoked current (pack per day) - Reported [place], [place] Start: 12-12-2014 End: 11-07-2023 Tobacco use and exposure Never used [place] Start: 12-12-2014 End: 11-07-2023 Alcohol intake Current drinker of alcohol (finding) [place] Start: 12-12-2014 Alcohol Comment Occasional Karla Steele [place], [place] Start: 02-08-2023 End: 06-14-2024 Tobacco smoking status Heavy tobacco smoker (finding) [facility] Start: 02-26-2023 End: 11-07-2023 Sex Assigned At Male [facility] How often to you hav e a drink containing alcohol? Never [facility] Functional Status Date Assessment Result Facility 06-14-2024 Functional Status N/A [facility] 2024 Functional Status N/A [facility] 03-16-2024 Functional Status N/A [facility] 07-05-2023 Functional Status N/A [facility] 06-14-2023 Functional Status N/A [facility] 05-17-2023 Functional Status N/A [facility] 02-08-2023 Functional Status N/A [facility] [facility] Clinical Notes 01-28-2023 to 06-13-2024 Laboratory Note Date & Type Note Facility 06-13-2024 Hospital Discharge instructions Follow Up Care 06/13/2024 12:30:58 With:Becky Pacekr Address: [address] [place] [id number] When:[address] [facility] 2024 Hospital Discharge instructions Patient Education 2024 13:49:34 Kidney Stones, Cgxc-fk-Cwpv Kidney Stones Kidney stones are rock-like masses that form inside of the kidneys. Kidneys are organs that make pee (urine). A kidney stone may move into other parts of the urinary tract, including: The tubes that connect the kidneys to the bladder (ureters). The bladder. The tube that carries urine out of the body (urethra). Kidney stones can cause very bad pain and can block the flow of pee. The stone usually leaves your body (passes) through your pee. You may need to have a doctor take out the stone. What are the causes? Kidney stones may be caused by: A condition in which certain glands make too much parathyroid hormone (primary hyperparathyroidism). A buildup of a type of crystals in the bladder made of a chemical called uric acid. The body makes uric acid when you eat certain foods. Narrowing (stricture) of one or both of the ureters. A kidney blockage that you were born with. Past surgery on the kidney or the ureters, such as gastric bypass surgery. What increases the risk? You are more likely to develop this condition if: You have had a kidney stone in the past. You have a family history of kidney stones. You do not drink enough water. You eat a diet that is high in protein, salt (sodium), or sugar. You are overweight or very overweight (obese). What are the signs or symptoms? Symptoms of a kidney stone may include: Pain in the side of the belly, right below the ribs (flank pain). Pain usually spreads (radiates) to the groin. Needing to pee often or right away (urgently). Pain when going pee (urinating). Blood in your pee (hematuria). Feeling like you may vomit (nauseous). Vomiting. Fever and chills. How is this treated? Treatment depends on the size, location, and makeup of the kidney stones. The stones will often pass out of the body through peeing. You may need to: Drink more fluid to help pass the stone. In some cases, you may be given fluids through an IV tube put into one of your veins at the hospital. Take medicine for pain. Make changes in your diet to help keep kidney stones from coming back. Sometimes, medical procedures are needed to remove a kidney stone. This may involve: A procedure to break up kidney stones using a beam of light (laser) or shock waves. Surgery to remove the kidney stones. Follow these instructions at home: Medicines Take tkdj-blj-kbjefgv and prescription medicines only as told by your doctor. Ask your doctor if the medicine prescribed to you requires you to avoid driving or using heavy machinery. Eating and drinking Drink enough fluid to keep your pee pale yellow. You may be told to drink at least 8 10 glasses of water each day. This will help you pass the stone. If told by your doctor, change your diet. This may include: ?Limiting how much salt you eat. ?Eating more fruits and vegetables. ?Limiting how much meat, poultry, fish, and eggs you eat. Follow instructions from your doctor about eating or drinking restrictions. General instructions Collect pee samples as told by your doctor. You may need to collect a pee sample: ?24 hours after a stone comes out. ?8 12 weeks after a stone comes out, and every 6 12 months after that. Strain your pee every time you pee (urinate), for as long as told. Use the strainer that your doctor recommends. Do not throw out the stone. Keep it so that it can be tested by your doctor. Keep all follow-up visits as told by your doctor. This is important. You may need follow-up tests. How is this prevented? To prevent another kidney stone: Drink enough fluid to keep your pee pale yellow. This is the best way to prevent kidney stones. Eat healthy foods. Avoid certain foods as told by your doctor. You may be told to eat less protein. Stay at a healthy weight. Where to find more information National Kidney Foundation (NKF): www.kidney.org Urology Care Foundation (UCF): www.urologyhealth.org Contact a doctor if: You have pain that gets worse or does not get better with medicine. Get help right away if: You have a fever or chills. You get very bad pain. You get new pain in your belly (abdomen). You pass out (faint). You cannot pee. Summary Kidney stones are rock-like masses that form inside of the kidneys. Kidney stones can cause very bad pain and can block the flow of pee. The stones will often pass out of the body through peeing. Drink enough fluid to keep your pee pale yellow. This information is not intended to replace advice given to you by your health care provider. Make sure you discuss any questions you have with your health care provider. Document Revised: 06/07/2022 Document Reviewed: 06/07/2022 [facility] Patient Education 2022 Yub. Follow Up Care 04/24/2024 10:51:34 With:[facility] Address: [address] [place] [phone] Business (1) When: Unknown Comments:our planner/scheduler will be contacting you for follow-up With:ROSETTE GÓMEZ, Yandel Campos, URL Address: [facility] [address] [place] [address]- When: Unknown [facility] 2024 Note Patient Education Urology Kidney Stones Kidney stones are rock-like masses that form inside of the kidneys. Kidneys are organs that make pee (urine). A kidney stone may move into other parts of the urinary tract, including: ? The tubes that connect the kidneys to the bladder (ureters). ? The bladder. ? The tube that carries urine out of the body (urethra). Kidney stones can cause very bad pain and can block the flow of pee. The stone usually leaves your body (passes) through your pee. You may need to have a doctor take out the stone. What are the causes? Kidney stones may be caused by: ? A condition in which certain glands make too much parathyroid hormone (primary hyperparathyroidism). ? A buildup of a type of crystals in the bladder made of a chemical called uric acid. The body makes uric acid when you eat certain foods. ? Narrowing (stricture) of one or both of the ureters. ? A kidney blockage that you were born with. ? Past surgery on the kidney or the ureters, such as gastric bypass surgery. What increases the risk? You are more likely to develop this condition if: ? You have had a kidney stone in the past. ? You have a family history of kidney stones. ? You do not drink enough water. ? You eat a diet that is high in protein, salt (sodium), or sugar. ? You are overweight or very overweight (obese). What are the signs or symptoms? Symptoms of a kidney stone may include: ? Pain in the side of the belly, right below the ribs (flank pain). Pain usually spreads (radiates) to the groin. ? Needing to pee often or right away (urgently). ? Pain when going pee (urinating). ? Blood in your pee (hematuria). ? Feeling like you may vomit (nauseous). ? Vomiting. ? Fever and chills. How is this treated? Treatment depends on the size, location, and makeup of the kidney stones. The stones will often pass out of the body through peeing. You may need to: ? Drink more fluid to help pass the stone. In some cases, you may be given fluids through an IV tube put into one of your veins at the hospital. ? Take medicine for pain. ? Make changes in your diet to help keep kidney stones from coming back. Sometimes, medical procedures are needed to remove a kidney stone. This may involve: ? A procedure to break up kidney stones using a beam of light (laser) or shock waves. ? Surgery to remove the kidney stones. Follow these instructions at home: Medicines ? Take oicw-wul-pgvnaiv and prescription medicines only as told by your doctor. ? Ask your doctor if the medicine prescribed to you requires you to avoid driving or using heavy machinery. Eating and drinking ? Drink enough fluid to keep your pee pale yellow. You may be told to drink at least 8?10 glasses of water each day. This will help you pass the stone. ? If told by your doctor, change your diet. This may include: ? Limiting how much salt you eat. ? Eating more fruits and vegetables. ? Limiting how much meat, poultry, fish, and eggs you eat. ? Follow instructions from your doctor about eating or drinking restrictions. General instructions ? Collect pee samples as told by your doctor. You may need to collect a pee sample: ? 24 hours after a stone comes out. ? 8?12 weeks after a stone comes out, and every 6?12 months after that. ? Strain your pee every time you pee (urinate), for as long as told. Use the strainer that your doctor recommends. ? Do not throw out the stone. Keep it so that it can be tested by your doctor. ? Keep all follow-up visits as told by your doctor. This is important. You may need follow-up tests. How is this prevented? To prevent another kidney stone: ? Drink enough fluid to keep your pee pale yellow. This is the best way to prevent kidney stones. ? Eat healthy foods. ? Avoid certain foods as told by your doctor. You may be told to eat less protein. ? Stay at a healthy weight. Where to find more information ? National Kidney Foundation (NKF): www.kidney.org ? Urology Care Foundation (UCF): www.urologyhealth.org Contact a doctor if: ? You have pain that gets worse or does not get better with medicine. Get help right away if: ? You have a fever or chills. ? You get very bad pain. ? You get new pain in your belly (abdomen). ? You pass out (faint). ? You cannot pee. Summary ? Kidney stones are rock-like masses that form inside of the kidneys. ? Kidney stones can cause very bad pain and can block the flow of pee. ? The stones will often pass out of the body through peeing. ? Drink enough fluid to keep your pee pale yellow. This information is not intended to replace advice given to you by your health care provider. Make sure you discuss any questions you have with your health care provider. Document Revised: 06/07/2022 Document Reviewed: 06/07/2022 [facility] [facility] Patient Education ? 2022 Yub. [facility] 03-16-2024 Hospital Discharge instructions Patient Education 03/16/2024 11:05:42 Kidney Stones, Unzz-ew-Dbbs Kidney Stones Kidney stones are rock-like masses that form inside of the kidneys. Kidneys are organs that make pee (urine). A kidney stone may move into other parts of the urinary tract, including: The tubes that connect the kidneys to the bladder (ureters). The bladder. The tube that carries urine out of the body (urethra). Kidney stones can cause very bad pain and can block the flow of pee. The stone usually leaves your body (passes) through your pee. You may need to have a doctor take out the stone. What are the causes? Kidney stones may be caused by: A condition in which certain glands make too much parathyroid hormone (primary hyperparathyroidism). A buildup of a type of crystals in the bladder made of a chemical called uric acid. The body makes uric acid when you eat certain foods. Narrowing (stricture) of one or both of the ureters. A kidney blockage that you were born with. Past surgery on the kidney or the ureters, such as gastric bypass surgery. What increases the risk? You are more likely to develop this condition if: You have had a kidney stone in the past. You have a family history of kidney stones. You do not drink enough water. You eat a diet that is high in protein, salt (sodium), or sugar. You are overweight or very overweight (obese). What are the signs or symptoms? Symptoms of a kidney stone may include: Pain in the side of the belly, right below the ribs (flank pain). Pain usually spreads (radiates) to the groin. Needing to pee often or right away (urgently). Pain when going pee (urinating). Blood in your pee (hematuria). Feeling like you may vomit (nauseous). Vomiting. Fever and chills. How is this treated? Treatment depends on the size, location, and makeup of the kidney stones. The stones will often pass out of the body through peeing. You may need to: Drink more fluid to help pass the stone. In some cases, you may be given fluids through an IV tube put into one of your veins at the hospital. Take medicine for pain. Make changes in your diet to help keep kidney stones from coming back. Sometimes, medical procedures are needed to remove a kidney stone. This may involve: A procedure to break up kidney stones using a beam of light (laser) or shock waves. Surgery to remove the kidney stones. Follow these instructions at home: Medicines Take oldp-nvn-lovsfdy and prescription medicines only as told by your doctor. Ask your doctor if the medicine prescribed to you requires you to avoid driving or using heavy machinery. Eating and drinking Drink enough fluid to keep your pee pale yellow. You may be told to drink at least 8 10 glasses of water each day. This will help you pass the stone. If told by your doctor, change your diet. This may include: ?Limiting how much salt you eat. ?Eating more fruits and vegetables. ?Limiting how much meat, poultry, fish, and eggs you eat. Follow instructions from your doctor about eating or drinking restrictions. General instructions Collect pee samples as told by your doctor. You may need to collect a pee sample: ?24 hours after a stone comes out. ?8 12 weeks after a stone comes out, and every 6 12 months after that. Strain your pee every time you pee (urinate), for as long as told. Use the strainer that your doctor recommends. Do not throw out the stone. Keep it so that it can be tested by your doctor. Keep all follow-up visits as told by your doctor. This is important. You may need follow-up tests. How is this prevented? To prevent another kidney stone: Drink enough fluid to keep your pee pale yellow. This is the best way to prevent kidney stones. Eat healthy foods. Avoid certain foods as told by your doctor. You may be told to eat less protein. Stay at a healthy weight. Where to find more information National Kidney Foundation (NKF): www.kidney.org Urology Care Foundation (UCF): www.urologyhealth.org Contact a doctor if: You have pain that gets worse or does not get better with medicine. Get help right away if: You have a fever or chills. You get very bad pain. You get new pain in your belly (abdomen). You pass out (faint). You cannot pee. Summary Kidney stones are rock-like masses that form inside of the kidneys. Kidney stones can cause very bad pain and can block the flow of pee. The stones will often pass out of the body through peeing. Drink enough fluid to keep your pee pale yellow. This information is not intended to replace advice given to you by your health care provider. Make sure you discuss any questions you have with your health care provider. Document Revised: 06/07/2022 Document Reviewed: 06/07/2022 [facility] [facility] Patient Education 2022 Yub. Follow Up Care 03/16/2024 07:23:22 With:Joi Cuellar PA-C Address: [address] [place] [phone] When: only if needed Comments:Only if needed [facility] 07-25-2023 Note Chief Complaint Referral *Kidney Stones HPI Staff Evaluation requested by Joi Cuellar PA-C due to Kidney Stones. Pt is a new pt, never before seen in our office. Hx of Kidney of Kidney Stones. Was given 10 day supply of Flomax from PCP 07/05/23 (did not take on schedule, still has 1 pill) KUB 07/08/23 Pt passed stone 07/15/23 Pt has stone with him today. Denies stone analysis in the past. Does have Hx of Kidney Stones, since age of 19. Has passed them on his own, estimates 40-50 stones in lifetime. No surgical intervention. Stones have been harder to pass in the past 5yrs. Believes the last stone started to get stuck. Does have some discomfort in testicular area while voiding since he has passed the stone. History of Present Illness Tests reviewed: reviewed UA and External Records. I have reviewed the previous health record information and history for this patient from External Provider. I have reviewed and verified the staff HPI to be accurate for this encounter. There have been no associated fever, chills, flank pain, or blood in the urine. Denies any urinary infections since last encounter. Review of Systems PHQ Score Initial Depression Screen Score: 0 ROS - Provider Constitutional: denies weight loss, denies hot flashes. Eyes: denies eye problems. Gastrointestinal: denies nausea, denies vomiting. Cardiovascular: denies chest pain or angina. Integumentary: no dryness Musculoskeletal: denies musculoskeletal symptoms. ENMT: denies otolaryngeal symptoms. Respiratory: no shortness of breath. Heme/Lymph: denies easy bleeding tendency, denies easy bruising tendency. Psychiatric: no confusion, no anxiety. Genitourinary: See HPI. Physical Exam Vitals & Measurements HT: 69 in HT: 175 cm WT: 74.8 kg WT: 164.56 lb BMI: 24.42 General Appearance: alert, no distress, well nourished, well developed male. Head: normocephalic . Eyes: normal orbit and globe. ENMT: normal examination of external ears. Chest: Lungs CTA, respirations non labored. Cardiovascular: regular rate and rhythm. Abdomen: soft, non distended, no tenderness, no mass or organomegaly, no hernia. Genitourinary: normal scrotum, normal testes, normal urethra, normal epididymis, normal vas deferens/spermatic cord. Flank Pain: none. Bladder: nonpalpable. Penis: normal shaft, normal glans. Lymph Nodes: unremarkable palpation of the cervical area. Skin: warm, dry, no bruising. Psychiatric: cooperative, affect appropriate for age, normal judgement, euthymic mood. Assessment/Plan 1. Kidney stone (N20.0: Calculus of kidney) Was given 10 day supply of Flomax from PCP 07/05/23 (did not take on schedule, still has 1 pill KUB 07/08/23 - 7 mm Rt renal stone, predominantly in the superior pole Denies stone analysis in the past. Does have some discomfort in testicular area while voiding since he has passed the stone. UA today shows trace-intact blood and no signs of infection. Pt states he has always had stones on his right side, normally would be able to pass within a couple of hours, this time the pain had lasted longer. Advised pt that he has a metabolic disorder that is causing him to creat these stones. Advised pt that we need to do a metabolic workup to see why he creates the stones after we treat the current stones. Advised pt that he passed the ureteral stone and still has the 7mm and possibly other stones in his kidney. Discussed doing R ESWL to treat the stone. Pt states that he would like to get the ESWL and metabolic workup done. Asked pt if he could get a KUB done at [facility] so we could see the image ourselves. Pt states that he can do this. Follow up after ESWL. All questions/concerns were discussed. Pt to call the office if he encounters any issues prior. Pt acknowledges understanding. -Will order KUB. -Will schedule ESWL. The procedure risks, benefits, details and treatment alternatives have been discussed with the patient. These include blood in the urine, infection, bleeding around the kidney, kidney bruising, inability to break up the stone, need for blood transfusion, blockage from stone fragments, and need for additional procedures, among others. Full informed consent has been obtained. Will order General anesthesia. 2. Ureteral stone (N20.1: Calculus of ureter) KUB 07/08/23 - 7 mm distal Rt ureter stone Pt has passed this stone on 07/15/23, brought it with him today. -Will send stone for analysis. 3. History of kidney stones (Z87.442: Personal history of urinary calculi) Does have Hx of Kidney Stones, since age of 19. Has passed them on his own, estimates 40-50 stones in lifetime. No surgical intervention. Stones have been harder to pass in the past 5yrs. 4. Smoker (F17.200: Nicotine dependence, unspecified, uncomplicated) Follow-up With When Contact Information Yandel LANDRUM MD, L [facility] [address] [place] [address]- Additional Instructions: Sched ESWL Patient Education Dietary G (more content not included)... [facility] Comment on above: Result Comment: Elec tronically Signed By: Yandel LANDRUM MD\.br\Date and Time Signed: 07/25/23 15:31 EDT\.br\Electronically Co-Signed By: Jojo Le\.br\Date and Time Co-Signed: 07/25/23 15:28 EDT 07-05-2023 Hospital Discharge instructions Patient Education 07/05/2023 12:30:03 Kidney Stones, Yfvt-yh-Ebbz Kidney Stones Kidney stones are rock-like masses that form inside of the kidneys. Kidneys are organs that make pee (urine). A kidney stone may move into other parts of the urinary tract, including: The tubes that connect the kidneys to the bladder (ureters). The bladder. The tube that carries urine out of the body (urethra). Kidney stones can cause very bad pain and can block the flow of pee. The stone usually leaves your body (passes) through your pee. You may need to have a doctor take out the stone. What are the causes? Kidney stones may be caused by: A condition in which certain glands make too much parathyroid hormone (primary hyperparathyroidism). A buildup of a type of crystals in the bladder made of a chemical called uric acid. The body makes uric acid when you eat certain foods. Narrowing (stricture) of one or both of the ureters. A kidney blockage that you were born with. Past surgery on the kidney or the ureters, such as gastric bypass surgery. What increases the risk? You are more likely to develop this condition if: You have had a kidney stone in the past. You have a family history of kidney stones. You do not drink enough water. You eat a diet that is high in protein, salt (sodium), or sugar. You are overweight or very overweight (obese). What are the signs or symptoms? Symptoms of a kidney stone may include: Pain in the side of the belly, right below the ribs (flank pain). Pain usually spreads (radiates) to the groin. Needing to pee often or right away (urgently). Pain when going pee (urinating). Blood in your pee (hematuria). Feeling like you may vomit (nauseous). Vomiting. Fever and chills. How is this treated? Treatment depends on the size, location, and makeup of the kidney stones. The stones will often pass out of the body through peeing. You may need to: Drink more fluid to help pass the stone. In some cases, you may be given fluids through an IV tube put into one of your veins at the hospital. Take medicine for pain. Make changes in your diet to help keep kidney stones from coming back. Sometimes, medical procedures are needed to remove a kidney stone. This may involve: A procedure to break up kidney stones using a beam of light (laser) or shock waves. Surgery to remove the kidney stones. Follow these instructions at home: Medicines Take cufi-qap-tnrlnwk and prescription medicines only as told by your doctor. Ask your doctor if the medicine prescribed to you requires you to avoid driving or using heavy machinery. Eating and drinking Drink enough fluid to keep your pee pale yellow. You may be told to drink at least 8 10 glasses of water each day. This will help you pass the stone. If told by your doctor, change your diet. This may include: ?Limiting how much salt you eat. ?Eating more fruits and vegetables. ?Limiting how much meat, poultry, fish, and eggs you eat. Follow instructions from your doctor about eating or drinking restrictions. General instructions Collect pee samples as told by your doctor. You may need to collect a pee sample: ?24 hours after a stone comes out. ?8 12 weeks after a stone comes out, and every 6 12 months after that. Strain your pee every time you pee (urinate), for as long as told. Use the strainer that your doctor recommends. Do not throw out the stone. Keep it so that it can be tested by your doctor. Keep all follow-up visits as told by your doctor. This is important. You may need follow-up tests. How is this prevented? To prevent another kidney stone: Drink enough fluid to keep your pee pale yellow. This is the best way to prevent kidney stones. Eat healthy foods. Avoid certain foods as told by your doctor. You may be told to eat less protein. Stay at a healthy weight. Where to find more information National Kidney Foundation (NKF): www.kidney.org [facility] [facility] (UCF): www.urologyhealth.org Contact a doctor if: You have pain that gets worse or does not get better with medicine. Get help right away if: You have a fever or chills. You get very bad pain. You get new pain in your belly (abdomen). You pass out (faint). You cannot pee. Summary Kidney stones are rock-like masses that form inside of the kidneys. Kidney stones can cause very bad pain and can block the flow of pee. The stones will often pass out of the body through peeing. Drink enough fluid to keep your pee pale yellow. This information is not intended to replace advice given to you by your health care provider. Make sure you discuss any questions you have with your health care provider. Document Revised: 06/07/2022 Document Reviewed: 06/07/2022 [facility] Patient Education 2022 [employer] Follow Up Care 07/05/2023 10:22:19 With:Joi Cuellar PA-C Address: [address] [place] [phone] When: Unknown Comments:Appointment has already been scheduled [facility] Hospital Discharge instructions Follow Up Care 05/17/2023 12:38:27 With:Joi Cuellar PA-C Address: [address] [place] [phone] When:Within 3 Month(s) Comments:FU for HODA, abdominal cramps, GERD [facility] 05-16-2023 Hospital Discharge instructions Follow Up Care 05/16/2023 13:53:53 With:Joi Culelar PA-C Address: [address] [place] [address]- [phone] When:Within 1 Month(s) Comments:FU for HODA, Abdominal painPlease schedule with No and give business card [facility] 01-28-2023 Hospital Discharge instructions Follow Up Care 01/28/2023 13:01:37 With:Joi Cuellar PA-C Address: [address] [place] [phone] When:Within 1 Month(s) Comments:Anxiety follow up [facility] + Plan note Future Appointments Appointment Date:03/08/2023 11:00:00 AM Scheduled Provider:Joi Cuellar PA-C Location:[facility] Appointment Type: Open [facility] + Plan note Future Appointments Appointment Date:06/14/2023 11:00:00 AM Scheduled Provider:Joi Cuellar PA-C Location:[facility] Appointment Type: Open [facility] Scheduled TestsComprehensive Metabolic Panel 03/09/23 [facility] + Plan note Future Appointments Appointment Date:09/06/2023 09:40:00 AM Scheduled Provider:Joi Cuellar PA-C Location:[facility] Appointment Type: Open [facility] note Diagnosis Sprain of left shoulder, unspecified shoulder sprain type, initial encounter- Primary Rotator cuff dysfunction, left documented in this encounter [facility] Diagnosis Dysuria [facility] Narrative No data available for this section [facility] Discharge instructions No data available for this section [facility] Attachments The following attachments cannot be sent through Care Everywhere. * Shoulder Sprain (Italian) [facility] No data available for this section [facility] Summary Purpose Family History No Family History Records Found No data available for this section No data available for this section No Family History Records Found No data available for this section No data available for this section No Family History Records FoundNo Family History Records Found No data available for this section Advance Directives Documents on File Type Date Recorded Patient Lead Pressman Expl anation Advance Directives and Living Will Power of Water Filtration Technician Documents on File Type Date Recorded Patient Lead Pressman Expl anation ACP-Advance Directive ACP-Power of Water Filtration Technician Assessments Diagnosis Anesthesia of skin Disturbance of skin sensation Pain in left wrist Pain in joint, forearm Unspecified acquired deformity of left forearm Diagnosis Ganglion cyst Ganglion, unspecified Diagnosis Right hand pain Pain in limb Diagnosis Pain of left thumb Pain in limb Diagnosis Anesthesia of skin Disturbance of skin sensation Pain in left wrist Pain in joint, forearm Acquired deformity of left forearm Unspecified deformity of forearm, excluding fingers Diagnosis Right wrist pain Pain in joint, forearm Additional Source Comments (unrecognized sect ion and content) No Status Records FoundNo Status Records FoundNo Status Records FoundNo Status Records Found INFORMATION SOURCE (unrecogn ized section and content) DATE CREATED AUTHOR 04/12/2018 [facility] DATE CREATED AUTHOR AUTHOR'S ORGANIZ ATION 12/28/2023 [facility] EPIC DATE CREATED AUTHOR AUTHOR'S ORGANIZ ATION 06/14/2024 [facility] DATE CREATED AUTHOR AUTHOR'S ORGANIZ ATION 06/14/2024 [facility] Patient Care team informatio n (unrecognized section and content) Personnel Name: Collin PIKE, Joi Monteiro Address: Address: [address] [place] [id number] Weather Clerk Relationship Specialty Start Date End Date Dexter Davis PA [address] [phone] PCP - General Physician Vision Therapist 04/28/20 Weather Clerk Relationship Specialty Start Date End Date Dexter Davis PA [address] [place] [address] PCP - General Physician Vision Therapist 04/28/20 Weather Clerk Relationship Specialty Start Date End Date Dexter Davis PA [address] [place] [address] PCP - General Physician Vision Therapist 04/28/20 Reason for Visit (unrecogniz ed section and content) Reason Comments Shoulder Injury Pt was shoveling sno w yesterday and felt a pop in his left shoulder. Has been taking Ibuprofen and ice with little to no relief Scheduled Active and Recently Administ ered Medications (unrecognized section and content) Medication Order 11/05/2023 11/06/2023 11/07/2023 ibuprofen (ADVIL;MOTRIN) tablet 600 mg (COMPLETED) 600 mg, Oral, ONCE, 1 dose, On 11/07/23 at 1630, Do not crush or break. 1626 (Given - Provid er: Magy Fermin RN) FOR RECORDS PERTAINING TO PATIENTS WHO ARE OR HAVE BEEN ENROLLED IN A CHEMICAL DEPENDENCY/SUBSTANCEABUSE PROGRAM, SOME INFORMATION MAY BE OMITTED. This clinical summary was aggregated from multiple sources. Caution should be exercised in using it in the provision of clinical care. This summary normalizes information from multiple sources, and as a consequence, information in this document may materially change the coding, format and clinical context of patient data. In addition, data may be omitted in some cases. CLINICAL DECISIONS SHOULD BE BASED ON THE PRIMARY CLINICAL RECORDS. [employer] provides no warranty or guarantee of the accuracy or completeness of information in this document.
--- NOTE | 2024-07-19 08:30 | XR_ITS ---
The [address] [address] Patient Name: HELEN RICO MRN: [id number] date: 1975 Sex: F Assigned Patient Location: [facility] Current Patient Location: Accession/Order Number: [id number] Exam Date: 07/19/2024 08:25 Report Date: 07/19/2024 13:26 At the request of: MARIA FERNANDA DINERO Procedure: XR abdomen 1V EXAMINATION: XR abdomen 1V HISTORY: kidney stones COMPARISON: 08/09/2023 FINDINGS: KIDNEY/URETER - RIGHT: Multiple right nephroliths, the largest measuring 9 mm projected between the right L2 and L3 transverse processes KIDNEY/URETER - LEFT: No visible renal or ureteral calcifications. PELVIS: No visible ureteral calcifications. Any visible calcifications favor phleboliths. BOWEL: No abnormal dilation or deviation. BONES: No acute abnormality. Asymmetric sclerosis of the right sacroiliac joint OTHER: Negative. No abnormal gaseous collections. XR/XR abdomen 1V IMPRESSION: Increase in right nephrolithiasis Electronically authenticated by: RAEANN CLEVELAND Date: 07/19/2024 13:26
[2024-07-19] MEDS: LACTATED RINGER'S SOLUTION 1,000 ML 50 ML IV ×2 (09:01→10:55)
[2024-07-19] MEDS: CEFAZOLIN SODIUM 2 GM/50 ML D5W PREMIX IV (09:58)
--- NOTE | 2024-07-19 11:44 | P.URON_ITS ---
Urology Surgery Operative Note Operative Note Procedure Date: 07/19/24 Time Out Performed: yes Pre-op Diagnosis: Right nephrolithiasis Post-op Diagnosis: other (Same plus right ureteral lithiasis) Procedures performed: 1. Right ESWL. 2. Cystoscopy. 3. Right ureteral dilation. 4. Right ureteroscopy. 5. Thulium laser lithotripsy of a large impacted right ureteral calculus. 6. Stone fragment basket extraction. 7. Right pyeloscopy. 8. Thulium laser lithotripsy of right renal calculi. 9. Placement of 6 Guatemalan variable length right ureteral stent Anesthesia: General-LMA Primary Surgeon: Yandel Landrum Complications: None Estimated blood loss (mL): 15 Findings: 1. Multiple right renal calculi. 2. Large impacted right ureteral calculus Specimens: Stone fragment from right ureter Drains: 6 Guatemalan variable length right ureteral stent Indications for Procedures: This gentleman has right renal calculi. He now presents for right ESWL and possible definitive ureteroscopic laser lithotripsy and right stent placement. He has signed an informed consent after risks were explained. Some of these risks include bleeding, perinephric hematoma, infection, anesthesia and possible need for further procedures to name a few. Detailed description of Procedure: The patient was brought to the Operating Room and placed on Siemens electromagnetic lithotripsy treatment table in the supine position. SCDs were placed on their lower extremities and turned on and functioning during the ent emily case. Timeout was done by all parties in the room. We all agreed upon the patient's identification and the planned procedures for this patient. General Anesthesia was then administered via LMA. Treatment head was then brought to the patient's correct side. While using flourscopy the right sided mid pole stone was identified and lined up into the crosshairs. We then began applying shocks. We started at a power level 2.0 and increased to a maximum power level 3.5. Intermittent fluoroscopy revealed we had full fragmentation after applying 1500 shocks. We then lined up a second stone near the lower pole. We gave the second 1500 shocks and had good fragmentation. At this time the lithotripsy Treatment: Procedure was stopped. With fluoroscopy we could see we still had a large stone which now appeared to be within the proximal right ureter. I then elected to do ureteroscopy. The patient was repositioned into the modified dorsolithotomy position. All pressure points were satisfactorily padded. Genitalia were sterilely prepped and draped in the usual fashion. I started by passing a 22 Guatemalan Olympus cystoscope per urethra and into the bladder. Panendoscopy showed no evidence of any tumors or stones. I then used an 8 Guatemalan rigid dilator to dilate the distal right ureter and I passed a Glidewire through the dilator and cannulated the right ureter. I was able to get the wire to and beyond the stone and into the kidney. The scope and dilator were removed and I then passed a 10/12 rigid ureteral access sheath over the wire and up the ureter. The stylette and wire were then removed. I then passed a flexible ureteroscope through the access sheath and into the ureter. I ascended up the ureter to the UPJ and found a large impacted stone. A 270 Angstrom laser fiber was passed through the scope. It made contact with the stone. I then used the thulium laser at 6 W continuously initially and this had to be turned up to 7.5 and then ultimately 10 W to get good fragmentation. I quickly realized this stone was deeply impacted into the wall of the ureter. I was able to laser out the stone and release it from the wall of the ureter. A 0 tip nitinol basket was used to engage some pieces and these were extracted out and sent for stone analysis. Once I finished lasering the stone some of the pieces did go into the kidney. I then ascended up the ureter into the renal pelvis and into calyces. I found multiple stones and I lasered them on the dusting mode at 10 W. I went into all the calyces and dusted everything I could. Visibility did become poor from blood from the prior ESWL. Fluoroscopically we were unable to see any stone remaining in the ureter or in the lower and midportion of the kidney. It appeared as though there was a stone in the upper pole but I was unable to get access to this. The scope was removed. A wire was passed up the sheath into the kidney and the sheath was removed. The cystoscope was backloaded over the wire and passed into the bladder. I then slid a 6 Guatemalan variable length stent over the wire up into the kidney. The wire was removed and there were good curls in the kidney and in the bladder. The bladder was drained of its contents and the scope was then removed. He was then transferred to a gurney bed and wheeled to PACU in stable condition.
[2024-07-19] MEDS: HYDROMORPHONE HCL 1 MG/ML CARTRIDGE INJ (11:51)
[2024-07-19] MEDS: SOLIFENACIN SUCCINATE 10 MG TABLET PO (12:15)
== END 2024-07-19 13:05 | disposition home or self-care (01) ==
PROVIDERS: Visit Provider Urology
PROC: (CPT 50590; principal; 2024-07-19 09:35)
DX: N20.2 Calculus of kidney with calculus of ureter (principal)
CPT/HCPCS: 50590; 52356; 74018; 82365; 99999; J0690; J1100; J1171; J2250; J2405; J2704; J3010

== ENCOUNTER 2024-08-20 07:41 | Day surgery (SDC) | payer BC, SELFPAY ==
[2024-08-20] MEDS: LIDOCAINE 2% JELLY 10 ML UR (08:21)
--- NOTE | 2024-08-20 08:29 | P.URON_ITS ---
Urology Surgery Operative Note Operative Note Procedure Date: 08/20/24 Time Out Performed: yes Pre-op Diagnosis: Status post ureteroscopic stone manipulation and right stent placement Post-op Diagnosis: same as pre-op Procedures performed: 1. Cystoscopy. 2. Right stent removal Anesthesia: local Primary Surgeon: Yandel Landrum Complications: None Estimated blood loss (mL): 0 Findings: None encrusted stent Specimens: None Drains: None Indications for Procedures: This gentleman had a impacted right ureteral calculus and ipsilateral renal calculi. He underwent laser lithotripsy and stent placement on the right side few weeks ago. He now presents for cystoscopy and right stent removal. He has signed an informed consent after risks were explained. Detailed description of Procedure: The patient was kept on the gurney bed and brought in the endoscopy suite. He was in the supine position. Timeout was done. Genitalia were sterilely prepped and draped in the usual fashion. 2% lidocaine jelly was passed per urethra. I then passed a flexible cystoscope per urethra and into the bladder. Anterior urethra was normal. Prostatic urethra revealed bilobar hypertrophy. The stent was not encrusted. A flexible grasping forceps was passed and the right stent was grasped. The scope and stent were then removed without difficulty. He was then discharged to home. The plan is that we will put him through a full stone metabolic workup. Follow- up will be in 3 months to review the data.
[2024-08-20 09:31] VITALS: BP 162/90; BP 172/89; PULSE 60; PULSE 63; O2SAT 100
== END 2024-08-20 08:40 | disposition home or self-care (01) ==
PROVIDERS: Visit Provider Urology
PROC: (CPT 52310; principal; 2024-08-20 08:15)
DX: Z46.6 Encounter for fitting and adjustment of urinary device (principal); Z87.442 Personal history of urinary calculi
CPT/HCPCS: 52310